=== PATIENT | male | born 1990 | race Caucasian/White ===

== ENCOUNTER 2023-09-20 16:02 | Outpatient (CLI) | payer OTHER, SELFPAY ==
[2023-09-20 16:41] LABS: Basophils # 0.1 K/mm3 (0-0.2); Basophils % 0.5 % (0.1-2.0); Eosinophils # 0.1 K/mm3 (0.0-0.4); Eosinophils % 0.6 % (0.1-12.0); Hematocrit 49.4 % (42.0-52.0); Lymphocytes # 2.6 K/mm3 (0.7-4.5); Lymphocytes % 19.2 % (10-50); Mean Corpuscular HGB Conc 32.4 g/dL (31.8-35.4); Mean Corpuscular Hemoglobin 33.6 pg (27.0-31.2); Mean Corpuscular Volume 103.8 fl (80-94); Mean Platelet Volume 8.2 fl (7.4-10.4); Monocytes # 0.8 K/mm3 (0.1-1.0); Monocytes % 5.7 % (1.7-9.3); Neutrophils # 10.2 K/mm3 (1.8-7.8); Platelet Count 262 K/mm3 (142-424); Red Blood Count 4.76 M/mm3 (4.60-6.20); Red Cell Distribution Width 13.4 % (11.5-17.5); White Blood Count 13.7 K/mm3 (4.8-10.8)
[2023-09-20 17:18] LABS: Alanine Aminotransferase 29 U/L (12-78); Albumin Level 4.5 g/dl (3.5-5.0); Alkaline Phosphatase 71 U/L (38-126); Anion Gap 14.1 mEq/L (5-15); Aspartate Amino Transferase 30 U/L (17-59); Bilirubin,Indirect 0.7 mg/dL (0.0-0.9); Bilirubin,Total 0.7 mg/dl (0.2-1.3); Bilirubin,Unconjugated 0.7 mg/dL (0.0-1.1); Blood Urea Nitrogen 16 mg/dl (9-20); Calcium 9.7 mg/dl (8.4-10.2); Carbon Dioxide 28 mmol/L (22.0-30.0); Chloride 105 mmol/L (98-107); Chol/HDL Ratio 6.8 (1-3.5); Cholesterol 211 mg/dl (140-200); Estimated Glomerular Filt Rate 87 ml/min (>60); GFR (African American) 105 ML/MIN (>60); Glucose 89 mg/dl (74-100); HDL Cholesterol 31 mg/dl (40-60); Potassium 4.1 mmoL/L (3.5-5.1); Sodium 143 mmol/L (136-145); Total Protein,Serum 7.3 g/dl (6.3-8.2); Triglycerides 247 mg/dl (30-150); VLDL Cholesterol 49 mg/dL (0-40)
[2023-09-20 17:29] LABS: Direct LDL Cholesterol 136.99 mg/dL (100-129)
[2023-09-20 17:48] LABS: Thyroid Stimulating Hormone 0.42 uIU/mL (0.465-4.68)
[2023-09-20 18:17] LABS: Hemoglobin A1C 5.4 % (4.0-6.0)
== END 2023-09-20 23:59 | disposition home or self-care (01) ==
LOC: LAB 16:03
PROVIDERS: PCP Nurse Practitioner Family; Visit Provider Internal Medicine
DX: Z13.1 Encounter for screening for diabetes mellitus (principal); R94.31 Abnormal electrocardiogram [ECG] [EKG]; F17.210 Nicotine dependence, cigarettes, uncomplicated; R53.83 Other fatigue; I10 Essential (primary) hypertension; I34.1 Nonrheumatic mitral (valve) prolapse; Z82.49 Family history of ischemic heart disease and other diseases of the circulatory system
CPT/HCPCS: 36415; 80048; 80061; 80076; 83036; 83735; 84439; 84443; 85025

== ENCOUNTER 2023-10-01 07:45 | Outpatient (CLI) | payer OTHER, SELFPAY ==
--- NOTE | 2023-10-01 07:45 | CA_ITS ---
APPROVED REPORT EXAM: Comprehensive 2D, Doppler, and color-flow Echocardiogram Refrigeration Unit Repairer: Veronika Collins RT(R) Ht: 6 ft 3 in Wt: 240lbs BSA: 2.37 BP: 142/96 mmHg Indications: Abn EKG, hx MVP, HTN, smoker, obesity, NAVIN, fatigue 2D Dimensions LVEF ([facility]) 51.30 % M: 52 - 72 LV Volume 127.90 mL M: 62 - 150 LV Volume Index 54.0 mL/m2 M: 34 - 74 LA Volume 36.50 mL LA Volume Index 15.40 mL/m2 (M/F) 16-34 EF AP4 47.70 % EF AP2 51.4 % EF BP 51.3 % GL Strain -15.7 % M-Mode Dimensions RVDd 2.70 cm (0.9-2.6) LA Diam 4.15 cm (1.9-4.0) LVDd 5.74 cm (3.5-5.7) LVDs 4.30 cm (3.5-5.7) IVSd 0.84 cm (0.6-1.1) PWd 0.65 cm (0.6-1.1) EF (Teich) 48.90% FS 25.10% EDV (Teich) 162.60 mL ESV (Teich) 83.10 mL LV Diastology E Decel Time 180 (160-240 msec) E/A Ratio 1.56 Mitral Valve MV A Velocity 53.0 (40-130 cm/s) E/A Ratio 1.56 Left Ventricle The left ventricle is normal size. The left ventricular systolic function is normal. The left ventricular ejection fraction is within the normal range. There is normal left ventricular wall thickness. There is normal LV segmental wall motion. The left ventricular diastolic function is normal. LVEF is 55%. Right Ventricle The right ventricle is mildly dilated. There is borderline RV hypokinesis present. Atria The left atrium size is normal. The right atrium size is normal. There is no Doppler evidence of interatrial shunt. Aortic Valve The aortic valve opens well. The aortic valve is trileaflet. There is no aortic valvular stenosis. No aortic regurgitation is present. Mitral Valve Borderline mitral valve prolapse of the posterior MV leaflet. No evidence of mitral valve stenosis. Mild mitral regurgitation noted. Tricuspid Valve The tricuspid valve leaflets are thin and pliable. Mild tricuspid regurgitation. RVSP is normal. Pulmonic Valve The pulmonary valve is normal in structure. Trace pulmonic regurgitation. Great Vessels The aortic root is normal in size. The ascending aorta is not well-visualized. IVC is normal in size and collapses >50% with inspiration. Pericardium There is no pericardial effusion. Other Information Study Quality: Fair Conclusion Normal LV systolic function. Mild RV dilation with borderline RV hypokinesis. Borderline mitral valve prolapse of the posterior MV leaflet. Mild MR, mild TR. Electronically signed by : Lizbeth Stoddard MD 10/05/2023 12:05:12
--- NOTE | 2023-10-01 08:14 | CT_ITS ---
APPROVED REPORT Guide Foreign Tour: CLINICAL INDICATION Chest Pain TECHNIQUE Image Acquisition: A 128 slice MDCT scanner ([employer] LaunchTracka View) was used for data acquisition. A noncontrast coronary calcium scan was performed. A CT attenuation threshold of 130 Hounsfield units (HU) was used for the detection of calcium in contiguous voxels of 1 sq mm in area to be counted as individual lesions. Bolus tracking in the ascending aorta with a threshold of 180 HU was performed. Immediately afterwards, ECG synchronized cardiac CT was then performed from the cardiac base to apex using retrospective gating with ECG tube current modulation. A total of 85 mL of Isovue 370 mg/mL contrast medium was administered at 5 mL/sec followed by a saline flush using a biphasic injection protocol. A tube voltage of 120 KVp was used. The patient received the following medications prior to the cardiac CT. 0.8 mg of sublingual nitroglycerin The average heart rate at the time of acquisition was 54 bpm and regular. Image Reconstruction Transaxial images were reconstructed at 0.67 mm slide thickness. Data was reviewed interactively on an advanced workstation capable of 2 and 3-dimensional displays in all conventional reconstruction formats, including multiplanar reformations, maximum intensity projections, curved multiplanar reformations, and volume rendered reconstructions. When applicable, selected routine images describing the relevant coronary anatomy and pathology were saved and sent to PACS. Complications None Technical Quality Overall image quality was good. Coronary artery opacification was adequate. Total DLP (Dose-Length Product) is 1879.6 mGy-cm. The reported value represents the total of one or more individual components during the CT acquisition of this date and at this time, and as such, the same value may appear in more than one CT report depending on the interpreting/reporting physicians. COMPARISON None FINDINGS CT Coronary Calcium Scoring LMA (Left Main Artery) = 0 LAD (Left Anterior Descending) = 0 LCX (Left Coronary Circumflex) = 0 RCA (Right Coronary Artery) = 0 Total Calcium Score = 0 using the AJ-130 method. The interpretation of the calcium heart score is based on the following continuum*: 0 = no calcified plaque detected (risk of coronary artery disease is very low ??? less than 5%) 1-10 = calcium detected in extremely minimal levels (risk of coronary diseases is still low ??? less than 10%) 11-100 = mild levels of plaque detected with certainty (mild or minimal narrowing of heart arteries is likely) 101-400 = definite,at least moderate levels of plaque detected (relatively high risk of a heart attack within 3-5 years) >401-999 = extensive levels of plaque detected (high risk of heart attack, high levels of vascular disease are present, high likelihood of at least one significant coronary narrowing) *The calcium heart score quantifies the burden of coronary calcification/plaque in the coronary arteries. The calcium heart score is not able to evaluate the presence or burden of non-calcified (i.e. soft) plaque. There is no identifiable calcification in the aortic valve, mitral annulus or mitral valve, pericardium, or myocardium. Coronary CT Angiography The coronary arterial system is right dominant. Quantitative Stenosis Grading: Left Main (LM): The left main originates normally from the left sinus of Valsalva. The LM bifurcates into the left anterior descending artery and left circumflex artery. The LM is patent with no evidence of atherosclerosis. Left Anterior Descending (LAD) and Diagonal Branches: The LAD gives off 3 diagonal branch(es). The LAD and its branches are patent with no evidence of atherosclerosis. There is no evidence of LAD-myocardial bridge. Left Circumflex (LCX) and Obtuse Marginals (OM): The LCX gives off Obtuse Marginal (OM) branch(es). The LCX and its branches are patent with no evidence of atherosclerosis. Right Coronary Artery (RCA): The RCA originates normally from the right sinus of Valsalva. The RCA gives off a posterior descending artery (PDA) and posterolateral (PL) branches. The RCA and its branches are patent with no evidence of atherosclerosis. Non-Coronary Cardiac Findings: Analysis of the left ventricular (LV) structure and function was performed after 3-D reconstruction of the LV from axial images, with user-corrected automatic contouring for assessment of LV volumes and user-defined reconstruction from oblique planes for measurement of 3-D cardiac structure and function. -The left ventricle systolic function is normal. -There is no left atrial appendage filling defect. Two right pulmonary veins and two left pulmonary veins drain normally into the left atrium. -No pericardial thickening or calcification. -Central and branch pulmonary arteries in the [id number] are unremarkable. -Thoracic aorta within the visualized thoracic aortic-branches in the [id number] is unremarkable. Extracardiac Structures No significant extra-cardiac findings. Note, however, that this study is focused on the cardiac findings. IMPRESSION -No coronary calcification with an Agatston score = 0 using the AJ-130 method. -No evidence of significant flow-limiting atherosclerosis of the coronary arteries. -CAD-RADS 0. Management recommendations per ACC/AHA guidelines*, as clinically appropriate. *Recommendations: CAD RADS 0: Reassurance. Consider non-atherosclerotic causes of chest pain. CAD RADS 1: Consider non-atherosclerotic causes of chest pain. Consider preventive therapy and risk factor modification. CAD RADS 2: Consider non-atherosclerotic causes of chest pain. Consider preventive therapy and risk factor modification, particularly for patients with nonobstructive plaque in multiple segments. CAD RADS 3: Consider further functional testing. Consider symptom-guided anti-ischemic and preventive pharmacotherapy as well as risk factor modification per published guideline statements. CAD RADS 4A: Consider further functional testing or invasive coronary angiography with revascularization per published guideline statements. Consider symptom-guided anti-ischemic and preventive pharmacotherapy as well as risk factor modification per published guideline statements. CAD RADS 4B: Invasive coronary angiography recommended with revascularization per published guideline statements. Consider symptom-guided anti-ischemic and preventive pharmacotherapy as well as risk factor modification per published guideline statements. CAD RADS 5: Consider invasive angiography and/or viability assessment with revascularization per published guideline statements. Consider symptom-guided anti-ischemic and preventive pharmacotherapy as well as risk factor modification per published guideline statements. CRITICAL RESULT None COMMUNICATION Per this written report The coronary and cardiac findings of this CCTA were reviewed, reported, and signed by Benoit Stoddard MD ([employer]) Conclusion Electronically signed by : Lizbeth Stoddard MD 10/04/2023 12:40:34
[2023-10-01 08:21] VITALS: BMI 30.8
[2023-10-01 08:45] VITALS: BP 132/76; PULSE 61; RESP 16; TEMP 36.2; O2SAT 98
[2023-10-01 08:50] VITALS: BP 157/94; PULSE 63; RESP 18; O2SAT 97
[2023-10-01] MEDS: NITROGLYCERIN 0.4MG SL TABLET SL (08:51)
[2023-10-01 08:52] VITALS: BP 146/70; PULSE 62; RESP 18; O2SAT 98
[2023-10-01 08:58] VITALS: BP 121/57; PULSE 66; RESP 18; O2SAT 98
[2023-10-01 09:02] VITALS: BP 118/63; PULSE 63; RESP 18; O2SAT 96
[2023-10-01 09:13] VITALS: BP 125/78; PULSE 63; RESP 18; O2SAT 93
[2023-10-01] MEDS: 0.9 % SODIUM CHLORIDE 50 ML VIAL IV (09:13)
[2023-10-01] MEDS: SODIUM CHLORIDE 0.9% 10ML SYR (RAD ONLY) 10 ML IV (09:13)
[2023-10-01] MEDS: IOPAMIDOL-370 (76%);100ML BOTTLE 85 ML IV (09:13)
== END 2023-10-01 09:13 | disposition home or self-care (01) ==
PROVIDERS: PCP Nurse Practitioner Family; Visit Provider Internal Medicine
DX: R94.31 Abnormal electrocardiogram [ECG] [EKG] (principal); R53.83 Other fatigue; I34.1 Nonrheumatic mitral (valve) prolapse; I10 Essential (primary) hypertension; Z82.49 Family history of ischemic heart disease and other diseases of the circulatory system; F17.210 Nicotine dependence, cigarettes, uncomplicated
CPT/HCPCS: 75574; 93306; Q9967

== ENCOUNTER 2023-12-02 09:52 | Outpatient (CLI) | payer OTHER, SELFPAY ==
[2023-12-02 10:10] LABS: Reticulocyte % (Auto) 1.5 % (0.9-3.2)
[2023-12-02 13:03] LABS: Vitamin B12 366 pg/mL (239-931)
[2023-12-04 10:00] LABS: Peripheral Smear Review Scanned Result
== END 2023-12-02 23:59 | disposition home or self-care (01) ==
LOC: LAB 09:53
PROVIDERS: PCP Nurse Practitioner Family; Visit Provider Internal Medicine Medical Oncology
DX: D72.829 Elevated white blood cell count, unspecified (principal)
CPT/HCPCS: 36415; 82607; 82746; 85044

== ENCOUNTER → 2024-07-26 20:37 | Outpatient (CLI) | payer OTHER, SELFPAY ==
--- OUTSIDE RECORDS SUMMARY | 2024-07-26 20:42 | XMS_ITS | Data Portability ---
Author Organization [facility] DARRIUS Ramirez ADMIN Address [address] [place] [id number] Care Team Providers Care Silo Tender Name Role Phone ADDISON HUTCHINS Primary Care Provider [phone] Assessment Encounter Date Assessment Date Assessment LastModified by Organization Details LastModified Time 06/16/2022 06/16/2022 today I more concerned about the patient's hypertension. Have discussed within the importance of hypertension control and he will be seeing his PCP tomorrow for additional treatment. Will obtain a CBC with diff and ESR. Will start NSAID, naproxen EC 500 mg b.i.d. with food p.r.n.. He will use scrotal support and rest when possible. Will be communicating with patient over the course the next few days with update on his response to treatment as well as his labs. We will also ensure that he is getting follow-up for his hypertension. [email or web address] Not available 06/16/2022 15:40:33 07/21/2022 07/21/2022 The patient's right epididymal tail/convoluted vas deferens is dilated as result of his vasectomy. Time will tell whether this becomes a more persistent issue for the patient. For now he is able to working about his usual activity without significant impairment. NSAIDs and rest currently take care of the problem. He will provide a sample for his 1st SFA post vasectomy. They will call for the results. Should this become a chronic issue, he could benefit from a right epididymectomy or partial epididymectomy although this would be a last resort. [email or web address] Not available 07/21/2022 14:16:59 Plan of Treatment Reminders Order Date Submit Date Provider Last Modified By Organization Details Last Modified Time Details Appointments None recorded. Lab semen analysis (post vasectomy) 2022 023 JAMES Not available 3 11:03:41 CBC w/ diff 2022 023 JAMES Not available 3 20:10:09 ESR (erythrocyt e sedimentati on rate), blood 2022 023 JAMES Not available 3 02:30:22 Referral None recorded. Procedures None recorded. Surgeries None recorded. Imaging None recorded. Medication Orders Naprosyn 500 mg tablet 2022 023 [email or web address] [facility], [address] [place], [address], 3 16:24:54 Patient TargetsNo targets recorded. Patient InstructionsNo instructions recorded. Reason for Referral None Reported. Results Created Date Observation Date Name Description Value Unit Range Abnormal Flag Note LastModifiedBy Organization Detail LastModifiedTime 04/27/1904/27/2022 COMP METAB OLIC PANEL sodium 142 mmol/ L 136-14 5 Not Available [facility] ([facility]) [address] [place], [address], 04/27/2022 07:00:54 04/27/19 23 04/27/2022 COMP METAB OLIC PANEL potassium 4.0 mmol/ L 3.6-5. 0 Not Available [facility] ([facility]) [address] [place], [address], 04/27/2022 07:00:54 04/27/19 23 04/27/2022 COMP METAB OLIC PANEL chloride 105 mmol/ L 98-107 Not Available [facility] ([facility]) [address] [place], [address], 04/27/2022 07:00:54 04/27/19 23 04/27/2022 COMP METAB OLIC PANEL carbon dioxide 28.5 mmol/ L 21.0-3 2.0 Not Available [facility] ([facility]) [address] [place], [address], 04/27/2022 07:00:54 04/27/19 23 04/27/2022 COMP METAB OLIC PANEL anion gap 12.5 Not Available [facility] ([facility]) [address] , [place], [address], 04/27/2022 07:00:54 04/27/19 23 04/27/2022 COMP METAB OLIC PANEL glucose 106 mg/dL 70-120 Not Available [facility] ([facility]) [address] , [place], [address], 04/27/2022 07:00:54 04/27/19 23 04/27/2022 COMP METAB OLIC PANEL BUN 11 mg/dL 7-18 Not Available [facility] ([facility]) [address] , [place], [address], 04/27/2022 07:00:54 04/27/19 23 04/27/2022 COMP METAB OLIC PANEL creatinine 1.0 mg/dL 0.6-1. 3 Not Available [facility] ([facility]) [address] , [place], [address], 04/27/2022 07:00:54 04/27/19 23 04/27/2022 COMP METAB OLIC PANEL glomerular filtration rate >60 mlper min 60- Not Available [facility] ([facility]) [address] , [place], [address], 04/27/2022 07:00:54 04/27/19 23 04/27/2022 COMP METAB OLIC PANEL total protein 6.9 g/dL 6.4-8. 2 Not Available [facility] ([facility]) [address] , [place], [address], 04/27/2022 07:00:54 04/27/19 23 04/27/2022 COMP METAB OLIC PANEL albumin 3.8 g/dL 3.4-5. 0 Not Available [facility] ([facility]) [address], [place], [address], 04/27/2022 07:00:54 04/27/19 23 04/27/2022 COMP METAB OLIC PANEL globulin 3.1 Not Available [facility] ([facility]) [address], [place], [address], 04/27/2022 07:00:54 04/27/19 23 04/27/2022 COMP METAB OLIC PANEL alb/glob ratio 1.2 0.7-2 Not Available [facility] ([facility]) [address], [place], [address], 04/27/2022 07:00:54 04/27/19 23 04/27/2022 COMP METAB OLIC PANEL calcium 8.8 mg/dL 8.5-10 .5 Not Available [facility] ([facility]) [address] , [place], [address], 04/27/2022 07:00:54 04/27/19 23 04/27/2022 COMP METAB OLIC PANEL bilirubin total 0.40 mg/dL 0.10-1 .00 Not Available [facility] ([facility]) [address] , [place], [address], 04/27/2022 07:00:54 04/27/19 23 04/27/2022 COMP METAB OLIC PANEL AST (SGOT) 14 U/L 0-37 Not Available [facility] ([facility]) [address] , [place], [address], 04/27/2022 07:00:54 04/27/19 23 04/27/2022 COMP METAB OLIC PANEL ALT (SGPT) 33 U/L 0-65 Not Available [facility] ([facility]) [address] , [place], [address], 04/27/2022 07:00:54 04/27/19 23 04/27/2022 COMP METAB OLIC PANEL alk phosphatase 86 U/L 46-116 Not Available [facility] ([facility]) [address], [place], [address], 04/27/2022 07:00:54 Result Notes None recorded. Procedures Surgical History Date Name Laterality Status Provider Name and Address Organization Details Recorded Time tonsillectomy completed [facility] & [place] 01/15/2022 08:46:50 Imaging Results None recorded. Procedure Notes None recorded. Medical Equipment None Reported. Allergies No known drug allergies Medications Name Sig Start Date Stop Date Status Note LastModified by Organization Details LastModified Time azithromyci n 250 mg tablet 01/14 completed Not Available Not Available Not Available tramadol 50 mg tablet Take 1 tablet every 8 hours by oral route for 4 days. active Not Available Not Available No t Available bisoprolol fumarate 10 mg tablet TAKE 1 TABLET(S) BY MOUTH DAILY active Not Available Not Available No t Available oxycodone-a cetaminophe n 5 mg-325 mg tablet Take 1 tablet every 6 hours by oral route for 3 days. 06/12 completed Not Available Not Available Not Available cephalexin 500 mg capsule Take 1 capsule every 6 hours by oral route for 5 days. 07/21 completed Not Available Not Available Not Available hydrochloro thiazide 12.5 mg capsule TAKE 1 CAPSULE BY MOUTH EVERY DAY active Not Available Not Available No t Available SSD 1 % topical cream APPLY A 1/16 INCH (1.5 MM) THICK LAYER OF CREAM TO ENTIRE BURN AREA TOPICALLY TWICE DAILY active Not Available Not Available No t Available naproxen 500 mg tablet Take 1 tablet twice a day by oral route for 10 days. active Not Available Not Available No t Available rosuvastati n 20 mg tablet active Not Available Not Available Not Available Vitals Date Recorded Body height Body mass index (BMI) Body weight Body temperature Systolic blood pressure Diastolic blood pressure Provider Name and Address Organization Details Last Updated DateTime 3 190.5 cm 31.4 kg/m2 657984. 68 g 98.2 [degF] 170 mm[Hg] 100 mm[Hg] [facility] & [place] 3 15:30:50 Date Recorded Body height Body mass index (BMI) Body weight Body temperature Systolic blood pressure Diastolic blood pressure Provider Name and Address Organization Details Last Updated DateTime 3 190.5 cm 31.4 kg/m2 037662. 84 g 98.2 [degF] 120 mm[Hg] 78 mm[Hg] Catalina HE [facility] & [place] 3 13:48:58 Date Recorded Body height Body mass index (BMI) Body weight Body temperature Systolic blood pressure Diastolic blood pressure Provider Name and Address Organization Details Last Updated DateTime 2 190.5 cm 32.9 kg/m2 097313. 51 g 99.3 [degF] 132 mm[Hg] 70 mm[Hg] Mona Ingram [facility] & [place] 2 08:48:49 Social History Question Answer Notes LastModified by Organizat ion Details LastModified Time Tobacco Smoking Status Current Every Day Smoker Catalina Guerrier [facility] & [place] 01/14/2022 08:29:44 What Is Your Level Of Alcohol Consumption? Occasional 1 Drink A Day [email or web address] Information not available 01/15/2022 What Is Your Level Of Caffeine Consumption? Moderate [email or web address] Information not available 01/14/2022 What Is Your Current Pack Years? 10packyears [email or web address] Information not available 01/14/2022 How Much Tobacco Do You Smoke? 2 PPD [email or web address] Information not available 01/15/2022 Do You Use Any Illicit Or Recreational Drugs? No [email or web address] Information not available 01/14/2022 Do You Or Have You Ever Used Any Other Forms Of Tobacco Or Nicotine? No [email or web address] Information not available 01/14/2022 Sex: Unknown Functional Status None recorded. Mental Status None recorded. Family History Nothing Reported Notes:mother alive father al dixie brother alive Medical History No medical history recorded. Past Encounters Encounter ID Performer Location Encounter Start Date Encounter Closed Date Diagnosis/Indication Diagnosis SNOMED-CT Code Diagnosis ICD10 Code Diagnosis Note [id number] Catalina Orona NP, S [facility] [address] [facility] [place] [address] 01/15/2022 08:35:24 01/15/2022 09:14:15 Vasectomy requested 914778026 Z30.2 The patient and I had a long discussion in regard to vasectomy. He understand s that he is not safe for unprotecte d intercours e prior to viewing two semen specimens after vasectomy showing no sperm. He understand s that this will be an outpatient procedure. He understand s that there is a possibilit y of recanaliza tion of the vas deferens creating fertility. The occurrence of post-opera tive with a negative semen analysis may not imply the father is not the patient. This may be confirmed by DNA testing. He also understand s that he should use ice, elevation, and inactivity for two days following the vasectomy; no intercours e for 2 weeks. He understand s complicati on of: 1. swelling in the scrotal area and the testicles, 2. bleeding, possibly requiring hospitaliz ation and surgical drainage, 3. loss of a testicle, 4. infection, and 5. pain. He understand s long-term complicati ons including: possible recanaliza tion of the vas producing fertility or chronic pain whether it is minor or significan t, even requiring surgical procedures including orchiectom y. He understand s that although this is a very effective procedure for sterilizat ion that it is not 100 percent effective. He was instructed to be inactive for 48 hours using ice, elevation, analgesics and antibiotic s as prescribed . He understand s the procedure employs sutures, clips, and cautery. Pt has been notified that it can take months (6-12 mo +/-) for SFA to note zero sperm. He must use protected intercours e until the SFA notes zero sperm.Clin ical Notes: Plan procedure under local/MAC. Patient will be nothing by mouth after midnight. No NSAIDs, aspirin, or blood thinning agents one week prior to the procedure. Bring a escort car driver day of procedure to drive you home. Shave all the hair from the front of the scrotum. Wear or bring close-fitt ing underwear that will support the scrotum. Arrange to rest and be off from work 2-3 days after the vasectomy. Limit activity for the first 48 hours following the procedure, avoid any heavy lifting, pushing, or straining. May take a shower in 48 hours, but needs to avoid soaking the scrotum in baths, swimming pools, hot tubs, and etc.. for at least 2 weeks following the procedure. Discussed also possible scrotal cyst removal. Sterilizat ion Consent SignedAnes thesia: Local MacPt will call office to schedule [id number] Palomo Hatch MD [facility] [address],[place] [address] 06/16/2022 15:20:39 06/16/2022 15:57:44 Post-vasectomy pain 380292323 G89.18 Essential hypertension 64786268 I10 Pain in scrotum 88681940 N50.82 right Right inguinal pain 1562 656738 9485823 R10.31 [id number] Palomo Hatch MD [facility] [address],[facility] [place] [address] 07/21/2022 13:28:20 07/21/2022 14:14:58 Post-vasectomy pain 077289853 G89.18 Dilatation and prominence of the right epididymal tail. Essential hypertension 74033964 I10 Pain in scrotum 57663622 N50.82 right Right inguinal pain 1562 609569 6090611 R10.31 Male sterilization 36165 1000 Z30.2 Health Concerns Section Related Observation LastModified by Organization Detai ls LastModified Time None Recorded Concern Status LastModified by Organization Details LastModified Time None Recorded Advance Directives Directive None Recorded Payers Encounter Date Sequence Insurance Name Policy Number Policy Cary Covered Member ID Cary Member ID Guarantor Name 01/15/2022 1 [facility] (MEDICAID HMO) Pedro Davis [id number] Pedro Davis 06/16/2022 1 [facility] ([facility] Pedro Davis [id number] Pedro Davis 07/21/2022 1 [facility] ([facility]) Pedro Davis [id number] Pedro Davis Notes Date Note Type Note Provider Name and Address Organization Details Recorded Time 01/15/2022 text/html He presents [facility] for [facility] consultation. He is with 2 children ages 6 years (female) and 2 months (female). Primary mode of control has been condoms. No genitourinary issues historically. No prior surgery or inguinal surgery. Catalina Orona NP, [address], [place], [address], [facility] 01/15/2022 10:30:53 06/16/2022 text/html Narrow patient returns to clinic today several weeks after a vasectomy. Medially following the sec me he had little to no pain. Over the last couple weeks he has had some increased pain / discomfort in the area the right testicle and with radiation along the right spermatic cord. 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 He does note some improvement in the pain with rest but worsening when he gets up and moves around especially after a few hours. He has not had any redness or swelling. This is not impaired his ability to work or go about his activities however. Today the most significant issue is hypertension. He tells me has a history of mitral valve prolapse and is followed by his PCP who is planning on seeing tomorrow for this problem and hypertension. His blood pressure was noted to be 170/100 today. The patient does not appear to be in any pain or acute distress. See past medical history:He presents today for vasectomy consultation. He is with 2 children ages 6 years (female) and 2 months (female). Primary mode of control has been condoms. No genitourinary issues historically. No prior surgery or inguinal surgery. Palomo Hatch MD [address], [place], [address], [facility] 06/16/2022 15:41:00 07/21/2022 text/html Patient returns to clinic today complaining of intermittent right paratesticular pain that happens approximately 2 days per week. It does not affect him during his work day on the farm but is more notable at night when he comes in after a long day and then rests. NSAIDs seem to make the pain / discomfort go away. He also felt much better when he went away for vacation and was way from his strenuous work on the farm. He is having no other issues. Tells me that the an antibiotic course in the past also seem to help. The patient underwent vasectomy on 04/28/2022. See past history below:Narrow patient returns to clinic today several weeks after a vasectomy. Medially following the sec me he had little to no pain. Over the last couple weeks he has had some increased pain / discomfort in the area the right testicle and with radiation along the right spermatic cord. 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 He does note some improvement in the pain with rest but worsening when he gets up and moves around especially after a few hours. He has not had any redness or swelling. This is not impaired his ability to work or go about his activities however. Today the most significant issue is hypertension. He tells me has a history of mitral valve prolapse and is followed by his PCP who is planning on seeing tomorrow for this problem and hypertension. His blood pressure was noted to be 170/100 today. The patient does not appear to be in any pain or acute distress. See past medical history:He presents today for vasectomy consultation. He is with 2 children ages 6 years (female) and 2 months (female). Primary mode of control has been condoms. No genitourinary issues historically. No prior surgery or inguinal surgery. Palomo Hatch MD [address], [place], [address], [facility] [place] [facility] [place] & [place] 07/21/2022 14:17:13
== END ==
LOC: SL 20:40
PROVIDERS: PCP Nurse Practitioner Family; Visit Provider Specialist
DX: G47.33 Obstructive sleep apnea (adult) (pediatric) (principal); R53.83 Other fatigue
CPT/HCPCS: 95811

== ENCOUNTER → 2024-09-13 20:17 | Outpatient (CLI) | payer OTHER, SELFPAY ==
--- OUTSIDE RECORDS SUMMARY | 2024-08-23 02:48 | XMS_ITS | Continuity of Care Document ---
Author Organization [facility] Phone Care Team Providers Care Police Detention Attendant Name Role Phone ADDISON HUTCHINS Primary Care ALPHONSE ECHEVARRIA Primary Attending ALPHONSE ECHEVARRIA Unavailable ALPHONSE ECHEVARRIA Admitting ALLERGIES AND ADVERSE REACTIONS ALLERGIES AND ADVERSE REACTIONS Code System Allergy Substance Adverse Reaction Date Reaction (Severity) Comment Status Reported By Updated By No Known Allergies [id number] on August 21, 2024 3:09:45 AM UTC RESULTS Patient: VERENICE CODY Date of : 1990 LABORATORY RESULTS ORDER 100: CBC WITH AUTO DIF F (LOINC: 17836-7) ORDER DATE: August 21, 2024 3:11:00 AM UTC Specimen Source: WHOLE BLOOD Specimen Type: Whole blood s ample PERFORMING LAB: [address] [id number] Result Comment: Final Result Date: August 21, 2024 3:29:00 AM UTC (TECH: RG) LOINC TEST [place] [address]-0 Leukocytes [#/volume] in Blood H 12.4 10^3/ul 4.5 10^3/ul - 11.5 10^3/ul August 21, 2024 3:29:00 AM UTC (TECH: RG) 33523-9 Erythrocytes [#/volume] in Blood L 4.56 10^6/ul 4.60 10^6/ul - 6.00 10^6/ul August 21, 2024 3:29:00 AM UTC (TECH: RG) 718-7 Hemoglobin [Mass/volume] in Blood N 14.8 g/dL 14.0 g/dL - 18.0 g/dL August 21, 2024 3:29:00 AM UTC (TECH: RG) 95935-8 Hematocrit [Volume Fraction] of Blood N 42.8 % 40.0 % - 54.0 % August 21, 2024 3:29:00 AM [place] (TECH: RG) 38227-0 MCV [Entitic volume] N 93.9 fL 80 fL - 100 fL August 21, 2024 3:29:00 AM UT (TECH: RG) 78038-5 MCH [Entitic mass] H 32.5 pg 26 pg - 32 pg August 21, 2024 3:29:00 AM UTC (TECH: RG) 99540-1 MCHC [Mass/volume] N 34.6 g/dl 32 g/d l - 36 g/dl August 21, 2024 3:29:00 AM UTC (TECH: RG) 52628-8 Erythrocyte distribution width [Entitic volume] N 12.4 % 11.5 % - 14.5 % August 21, 2024 3:29:00 AM UTC (TECH: RG) 777-3 Platelets [#/volume] in Blood by Automated count N 298 10^3/ul 150 10^3/ul - 450 10^3/ul August 21, 2024 3:29:00 AM UTC (TECH: [employer]) 33050-5 Mean platelet component [Mass/volume] in Blood by calculation N 9.8 fL 6.8 fL - 10.2 fL August 21, 2024 3:29:00 AM [facility] (TECH: [employer]) 04626-5 Manual Differential panel - Blood N NOT INDICATED August 21, 2024 3:29:00 AM UT (TECH: [employer]) 44270-8 Neutrophils [#/volume] in Blood N 65.9 % 50 % - 70 % August 21, 2024 3:29:00 AM UTC (TECH: RG) 45318-0 Lymphocytes [#/volume] in Blood N 22.2 % 18 % - 42 % August 21, 2024 3:29:00 AM UTC (TECH: RG) 55841-1 Monocytes [#/volume] in Blood N 10.3 % 2 % - 11 % August 21, 2024 3:29:00 AM UTC (TECH: RG) 98075-7 Eosinophils [#/volume] in Blood N 1.2 % 1 % - 3 % August 21, 2024 3:29:00 AM UTC (TECH: RG) 59688-0 Basophils/100 leukocytes in Blood N 0.2 % 0.0 % - 2.0 % August 21, 2024 3:29:00 AM UTC (TECH: RG) 762-5 Neutrophils [#/volume] in Urine by Manual count H 8.2 K/uL 2.0 K/uL - 6.9 K/uL August 21, 2024 3:29:00 AM UTC (TECH: RG) 00244-1 Variant lymphocytes [#/volume] in Blood N 2.7 K/uL 0.6 K/uL - 3.4 K/uL August 21, 2024 3:29:00 AM UTC (TECH: RG) 02446-0 Monocytes [#/volume] in Blood H 1.3 K/uL 0.0 K/uL - 0.9 K/uL August 21, 2024 3:29:00 AM UT (TECH: RG) 52587-4 Eosinophils [#/volume] in Blood N 0.2 K/ul 0.0 K/ul - 0.7 K/ul August 21, 2024 3:29:00 AM UT (TECH: RG) 30635-7 Basophils [#/volume] in Blood N 0.02 K/uL 0.0 K/uL - 0.2 K/uL August 21, 2024 3:29:00 AM UT (TECH: RG) ORDER 200: COMPREHENSIVE MET ABOLIC PANEL (LOINC: 94820-9) ORDER DATE: August 21, 2024 3:11:00 AM UT Specimen Source: PLASMA Specimen Type: Plasma specim en PERFORMING LAB: [address] [id number] Result Comment: Final Result Date: August 21, 2024 3:29:00 AM [facility] (TECH: RG) LOINC TEST FLAG RESULT REFERENCE RANGE UPDA DUSTY BY 2947-0 Sodium [Moles/volume ] in Blood N 144 mmol/L 136 mmol/L - 145 mmol/L August 21, 2024 3:29:00 AM UT (TECH: RG) 6298-4 Potassium [Moles/volume] in Blood N 4.0 mmol/L 3.5 mmol/L - 5.1 mmol/L August 21, 2024 3:29:00 AM UT (TECH: RG) 2069-3 Chloride [Moles/volu me] in Blood N 105 mmol/L 98.0 mmol/L - 107.0 mmol/L August 21, 2024 3:29:00 AM [facility] (TECH: RG) 93850-8 Carbon dioxide, tota l [Moles/volume] in Blood L 20 mmol/L 21 mmol/L - 32 mmol/L August 21, 2024 3:29:00 AM [facility] (TECH: RG) 41107-7 Anion gap 3 in Serum or Plasma H 23.0 mmol/L 5.0 mmol/L - 15.0 mmol/L August 21, 2024 3:29:00 AM UT (TECH: RG) 2339-0 Glucose [Mass/volume ] in Blood H 122 mg/dL 70 mg/dL - 120 mg/dL August 21, 2024 3:29:00 AM [facility] (TECH: RG) 3094-0 Urea nitrogen [Mass/volume] in Serum or Plasma N 12 mg/dl 7 mg/dl - 18 mg/dl August 21, 2024 3:29:00 AM [facility] (TECH: RG) 74690-6 Creatinine [Moles/volume] in Serum or Plasma N 1.3 mg/dL 0.8 mg/dL - 1.3 mg/dL August 21, 2024 3:29:00 AM [facility] (TECH: RG) 3097-3 Urea nitrogen/Creatinine [Mass Ratio] in Serum or Plasma N 9.2 Ratio 9 Ratio - 21 Ratio August 21, 2024 3:29:00 AM [facility] (TECH: [employer]) 76469-2 Glomerular filtratio n rate/1.73 sq M.predicted [Volume Rate/Area] in Serum or Plasma by Creatinine-based formula (MDRD) N >60 mL/min 60.0 mL/min August 21, 2024 3:29:00 AM [facility] (TECH: RG) 75336-6 Calcium [Mass/volume ] in Blood L 8.5 mg/dL 8.6 mg/dL - 9.8 mg/dL August 21, 2024 3:29:00 AM [facility] (TECH: RG) 91612-1 Bilirubin direct and total panel [Mass/volume] - Serum or Plasma N 0.3 mg/dL 0.2 mg/dL - 1.0 mg/dL August 21, 2024 3:29:00 AM [facility] (TECH: RG) 1920-8 Aspartate aminotransferase [Enzymatic activity/volume] in Serum or Plasma N 16 IU/L 15 IU/L - 37 IU/L August 21, 2024 3:29:00 AM UTC (TECH: RG) 1742-6 Alanine aminotransferase [Enzymatic activity/volume] in Serum or Plasma N 34 IU/L 12 IU/L - 78 IU/L August 21, 2024 3:29:00 AM UT (TECH: RG) 6768-6 Alkaline phosphatase [Enzymatic activity/volume] in Serum or Plasma N 97 IU/L 46 IU/L - 116 IU/L August 21, 2024 3:29:00 AM UTC (TECH: RG) 2885-2 Protein [Mass/volume ] in Serum or Plasma N 6.7 g/dL 6.4 g/dL - 8.2 g/dL August 21, 2024 3:29:00 AM UT (TECH: RG) 1751-7 Albumin [Mass/volume ] in Serum or Plasma N 3.7 g/dl 3.4 g/dl - 5.0 g/dl August 21, 2024 3:29:00 AM UT (TECH: RG) 2336-6 Globulin [Mass/volum e] in Serum N 3.0 g/dl 1.3 g/dl - 3.5 g/dl August 21, 2024 3:29:00 AM UT (TECH: RG) 34446-0 Albumin/Globulin [Ma ss Ratio] in Pleural fluid N 1.2 Ratio 1.0 Ratio - 3.9 Ratio August 21, 2024 3:29:00 AM UT (TECH: RG) 26897-0 Osmolality of Urine by calculation N 288 mOsm/kg 272 mOsm/kg - 295 mOsm/kg August 21, 2024 3:29:00 AM UT (TECH: RG) ORDER 300: UA-CULTURE IF IND ICATED (LOINC: 94376-1) ORDER DATE: August 21, 2024 3:11:00 AM UT Specimen Source: URINE Specimen Type: Urine specime n PERFORMING LAB: [address] [id number] Result Comment: Final Result Date: August 21, 2024 4:39:00 AM UT (TECH: RG) LOINC TEST FLAG RESULT REFERENCE RANGE UPDA DUSTY BY 5778-6 Color of Urine N YELLOW YELLOW July 282024 4:39:00 AM UTC (TECH: RG) 38189-2 Clarity of Urine N CLEAR CLEAR August 21, 2024 4:39:00 AM UTC (TECH: RG) 08874-4 Glucose [Moles/volum e] in Urine N NEGATIVE NEGATIVE August 21, 2024 4:39:00 AM UTC (TECH: RG) 1977-8 Bilirubin.total [Presence] in Urine N NEGATIVE NEGATIVE August 21, 2024 4:39:00 AM UTC (TECH: RG) 20905-3 Ketones [Presence] i n Urine TRACE NEGATIVE August 21, 2024 4:39:00 AM UTC (TECH: RG) 2965-2 Specific gravity of Urine N 1.025 1.00 - >=1.030 August 21, 2024 4:39:00 AM UTC (TECH: RG) 07172-6 Blood [Presence] in Urine by Visual N NEGATIVE NEGATIVE August 21, 2024 4:39:00 AM UTC (TECH: RG) 2756-5 pH of Urine N 6.5 5 - 8 August 21, 2024 4:39:00 AM UTC (TECH: RG) 2887-8 Protein [Presence] i n Urine TRACE NEGATIVE August 21, 2024 4:39:00 AM UTC (TECH: RG) 63086-7 Urobilinogen [Presen ce] in Urine 1.0 mg/dL 0.2 - 1.0 August 21, 2024 4:39:00 AM UTC (TECH: RG) 66050-3 Nitrite [Presence] i n Urine N NEGATIVE NEGATIVE August 21, 2024 4:39:00 AM UTC (TECH: RG) 30818-7 Leukocyte esterase [Units/volume] in Urine N NEGATIVE NEGATIVE August 21, 2024 4:39:00 AM UTC (TECH: RG) 23638-9 Urinalysis microscop ic panel - Urine sediment N NOT INDICATED August 21 025 4:39:00 AM UTC (TECH: RG) 33433-2 Collection method - N CCMS August 21, 2024 4:39:00 AM UTC (TECH: RG) 92564-6 Culture medium [Type ] in Isolate N C&S NOT INDIC August 21, 2024 4:39:00 AM UTC (TECH: RG) LABORATORY NARRATIVE RESULTS Information is not available RADIOLOGY RESULTS ORDER 400: CT ABD/PEL NO ORA L OR IV CONT (LOINC: 64402-6) ORDER DATE: August 21, 2024 3:11:00 AM [facility] PERFORMING LAB: [address] [place] [id number] Final Result Date: August 21 5:36:[address] [address] Name: GLO CALDERA Exam Date: 08/20/2024 : 1990 Age 33 years Gender: M Physician: ALPOHNSE ECHEVARRIA Facility: [facility] HSV: Outpatient Exam: CT ABD/PEL NO ORAL OR IV CONT CT ABDOMEN PELVIS WITHOUT IV CONTRAST, 08/20/2024 10:32 PM CDT CLINICAL INDICATION: Male, 33 years old. Flank Pain Left Side TECHNIQUE: CT abdomen and pelvis was performed without IV contrast, as per department protocol. Axial, sagittal and coronal reconstructions were obtained. One or more of the following dose reduction techniques were used: Automated exposure control, adjustment of the mA and/or kV according to patient size, and/or iterative reconstruction. Unless otherwise specified, incidental findings do not require dedicated imaging follow-up. [id number]. ORAL CONTRAST: Not administered, limiting the sensitivity of this exam for evaluation of bowel, retroperitoneum, and intraabdominal fluid collections. COMPARISON: 4-16 FINDINGS: LOWER CHEST: The visualized lung bases are clear. LIVER: Grossly normal noncontrasted appearance. GALLBLADDER: Grossly normal. BILE DUCTS: No significant biliary ductal dilatation. PANCREAS: Grossly normal noncontrasted appearance of the pancreas without peripancreatic inflammation or peripancreatic fluid collection. SPLEEN: Normal size. ADRENALS: Grossly normal. KIDNEYS AND URETERS: Mild left hydroureteronephrosis secondary to a 4 mm obstructing calculus in the distal left ureter near the left UVJ. Punctate nonobstructing calculi remain in both kidneys. URINARY BLADDER: Underdistended and therefore not well evaluated on this study. GASTROINTESTINAL TRACT: No abnormal distention of the stomach, small bowel, or colon to suggest bowel obstruction. No pericolonic inflammatory change. APPENDIX: Normal appendix. LYMPH NODES: No lymphadenopathy. VASCULATURE: No abdominal aortic aneurysm. REPRODUCTIVE ORGANS: No acute process. MUSCULOSKELETAL: No acute fracture. No suspicious lytic or sclerotic lesion. PERITONEUM: No free fluid visualized in the abdomen or pelvis. No pneumoperitoneum. Legally authenticated by SHAYY Baptiste 2024-08-21 01:36:00 IMPRESSION: Mild left hydroureteronephrosis secondary to a 4 mm obstructing calculus in the distal left ureter near the left UVJ. Punctate nonobstructing calculi remain in both kidneys. Electronically signed by: Ki Crump MD 08/21/2024 01:54 AM EDT RP Dictated By: KI CRUMP Transcribed By: Transcribed On: 08/21/2024 1:36 AM Electronically signed by: KI CRUMP 08/21/2024 Thank you for referring GLO CALDERA to [facility]. Legally authenticated by SHAYY Baptiste 2024-08-21 01:36:00 PATHOLOGY NARRATIVE RESULTS Information is not available MICROBIOLOGY RESULTS No Micro Labs/Results Exist for Patient BLOOD ADMIN RESULTS Information is not available MEDICATIONS HOME MEDICATIONS Status RXNORM NDC Medication Dose Route Frequency Dates Comments Reported By Updated By Active [employer] tMed losartan oral 0.0 Last Dose: [id number] on August 21, 2024 3:09:45 AM UT DISCHARGE MEDICATIONS Status RXNORM NDC Medication Dose Route Frequency Dates Comments Physician Updated By No Discharge Medication Info rmation Available INPATIENT MEDICATIONS Status RXNORM NDC Medication Dose Route Frequency Rat e Quantity Dates Comments Physician Updated By Arnold inued [id number] ketorolac (TORADOL) 30 MG/ML SOLN 30.0 MG INTRAV ENOUS ONE TIME ONLY Start: August 21, 2024 3:13:0 0 AM UT End: August 21, 2024 3:13:0 0 AM UT ECHEVARRIA ALPHONSE Vang INTERFAC ED on August 21, 2024 3:12:00 AM UT Discont inued [id number] 4959 4088 501 NORCO 5-325 MG TABS 1.0 TAB ORAL ONE TIME ONLY Start: August 21, 2024 4:37:0 0 AM UT End: August 21, 2024 4:37:0 0 AM UT ECHEVARRIA ALPHONSE Vang INTERFAC ED on August 21, 2024 4:36:00 AM UT Discont inued [id number] 5613 005 ondansetron (ZOFRAN) 4 MG/2 ML SOLN 4.0 MG INTRAV ENOUS ONE TIME ONLY Start: August 21, 2024 4:37:0 0 AM UTC End: August 21, 2024 4:37:0 0 AM UTC ECHEVARRIA ALPHONSE Vang INTERFAC ED on August 21, 2024 4:36:00 AM UT Discont inued [id number] 6513 4089 501 NORCO 5-325 MG TABS 1.0 TAB ORAL ONE TIME ONLY Start: August 21, 2024 6:12:0 0 AM UTC End: August 21, 2024 6:12:0 0 AM UTC ECHEVARRIA ALPHONSE Vang INTERFAC ED on August 21, 2024 6:12:00 AM UT SOCIAL HISTORY SOCIAL HISTORY SNOMED-CT Social History Element Description Effective Dates Offered Cessation Comment UpdatedBy [id number] Current Tobacco smoking status Heavy Tobacco Smoker [id number] on August 21, 2024 3:10:28 AM UT SOCIAL HISTORY - Gender Sex: Male SOCIAL HISTORY - Status : status i nformation is not available Intention in Next Year: intention information is not available SOCIAL HISTORY - Sexual Behavior Sexual Orientation Gender Identity SNOMED-CT Description SNO MED -CT Description Activity Level No of Partners Partner Type UpdatedBy Information is not available VITAL SIGNS PATIENT VITAL SIGNS This section displays the mo st recent value for each vital sign as of August 23, 2024 6:48:26 AM UT Loinc Code Vital Sign Activity Date Result Updated By 8302-2 Body height August 21, 2024 3:07:38 AM UTC 190.5 cm (75.0 in) [id number] on August 21, 2024 3:07:38 [place] [address]-7 Body mass index (BMI ) [Ratio] August 21, 2024 3:07:38 AM UTC 31.138 kg/m2 [id number] on August 21, 2024 3:07:38 AM UT 3140-1 Body Surface Area Derived From Formula August 21, 2024 3:07:38 AM UTC 2.4091 m2 [id number] on August 21, 2024 3:07:38 AM UT 8310-5 Body temperature August 21, 2024 3:05:00 AM UTC 97.6 [degF] [id number] on August 21, 2024 3:07:37 [place] [address]-5 Body weight Measured August 21 3:07:38 AM UTC 113.0 kg (249.0 lb) [id number] on August 21, 2024 3:07:38 AM UTC 8462-4 Diastolic blood pressure August 21, 2024 6:00:00 AM UTC 85.0 mm[Hg] [id number] on August 21, 2024 6:17:25 AM UTC 8867-4 Heart rate August 21, 2024 6:09:00 AM UTC 79 /min [id number] on August 21, 2024 6:17:[place] [address]-8 Oxygen saturation in Arterial blood by Pulse oximetry August 21, 2024 6:09:00 AM UTC 95.0 % [id number] on August 21, 2024 6:17:26 AM UT 9279-1 Respiratory rate August 21, 2024 3:05:00 AM UTC 16 /min [id number] on August 21, 2024 3:07:37 AM UTC 8480-6 Systolic blood pressure August 21, 2024 6:00:00 AM UTC 145.0 mm[Hg] [id number] on August 21, 2024 6:17:25 AM UT PEDIATRIC GROWTH CHART - VITAL SIGNS This section displays Head C ircumference Percentile, Weight for Length Percentile and BMI Percentile Loinc Code Pediatric Measure Age (Months) Result Updat ed By No Pediatric Growth Chart Pe rcentile Information Available. HEALTH CONCERNS Problems Concern Status Health Concern problem infor mation not available. Smoking Status Status Years Used Consumed packs p er day Health Concern smoking histo ry information not available. Family History Concern Status Health Concern family histor y information not available. ENCOUNTERS ENCOUNTER INFORMATION Reason for Visit FLANK PAIN Admission August 21, 2024 2:59:[address] [address] Discharge August 21, 2024 6:21:00 AM UTC DISC HARGED TO HOME OR SELF CARE ENCOUNTER DIAGNOSES Notes information is not akira ilable. Code System Diagnosis Onset Date Diagnosis information is not available. 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) DR TALHA YOUNG [id number] on August 23, 2024 6:47:41 AM UTC CARE TEAM Care Police Detention Attendant Role ADDISON HUTCHINS Primary Care ALPHONSE ECHEVARRIA Primary Attending ALPHONSE ECHEVARRIA Referring ALPHONSE ECHEVARRIA 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 Role on Team Status Start Date End Date Update d By WALE Vang APRN Referring normal August 21, 2024 4:28:55 AM UT August 21, 2024 6:21:00 AM UT [id number] on August 21, 2024 4:28:55 AM UT WALE Vang APRN Attending normal August 21, 2024 4:05:54 AM UT August 21, 2024 6:21:00 AM UT [id number] on August 21, 2024 4:28:55 AM [facility] WALE Vang APRN Admitting normal August 21, 2024 4:05:53 AM UT August 21, 2024 6:21:00 AM UT [id number] on August 21, 2024 4:28:55 AM [facility] CUONG JAIME [facility] normal August 21, 2024 2:59:39 AM UT August 21, 2024 6:21:00 AM UT [id number] on August 21, 2024 4:28:55 AM UT
--- OUTSIDE RECORDS SUMMARY | 2024-09-13 20:20 | XMS_ITS | Data Portability ---
Author Organization [facility] DARRIUS Ramirez ADMIN Address [address] [place] [address] Care Team Providers Care Waiter Name Role Phone ADDISON HUTCHINS Primary Care Provider [phone] Assessment Encounter Date Assessment Date Assessment LastModified [...] he is getting follow-up for his hypertension. [email or web address] Not available 06/16/2022 15:40:33 07/21/2022 07/21/2022 The [...] although this would be a last resort. [email or web address] Not available 07/21/2022 14:16:59 Plan of Treatment [...] 023 [email or web address] [facility], [address] [place], [address], 3 16:24:54 Patient TargetsNo targets recorded. Patient InstructionsNo instructions recorded. Reason for Referral None Reported. Results Created Date Observation Date Name Description Value Unit Range Abnormal Flag Note LastModifiedBy Organization Detail LastModifiedTime 04/27/1904/27/2022 COMP METAB OLIC PANEL sodium 142 mmol/ L 136-14 5 Not Available [facility] ([facility]) [address] [place], [address], 04/27/2022 07:00:54 04/27/19 23 04/27/2022 COMP METAB OLIC PANEL potassium 4.0 mmol/ L 3.6-5. 0 Not Available [facility] ([facility]) [address] [place], [address], 04/27/2022 07:00:54 04/27/19 23 04/27/2022 COMP METAB OLIC PANEL chloride 105 mmol/ L 98-107 Not Available [facility] ([facility]) [address] [place], [address], 04/27/2022 07:00:54 04/27/19 23 04/27/2022 COMP METAB OLIC PANEL carbon dioxide 28.5 mmol/ L 21.0-3 2.0 Not Available [facility] ([facility]) [address] [place], [address], 04/27/2022 07:00:54 04/27/19 23 04/27/2022 COMP METAB OLIC PANEL anion gap 12.5 Not Available [facility] ([facility]) [address] , [place], [address], 04/27/2022 07:00:54 04/27/19 23 04/27/2022 COMP METAB OLIC PANEL glucose 106 mg/dL 70-120 Not Available [facility] ([facility]) [address] , [place], [address], 04/27/2022 07:00:54 04/27/19 23 04/27/2022 COMP METAB OLIC PANEL BUN 11 mg/dL 7-18 Not Available [facility] ([facility]) [address] , [place], [address], 04/27/2022 07:00:54 04/27/19 23 04/27/2022 COMP METAB OLIC PANEL creatinine 1.0 mg/dL 0.6-1. 3 Not Available [facility] ([facility]) [address] , [place], [address], 04/27/2022 07:00:54 04/27/19 23 04/27/2022 COMP METAB OLIC PANEL glomerular filtration rate >60 mlper min 60- Not Available [facility] ([facility]) [address] , [place], [address], 04/27/2022 07:00:54 04/27/19 23 04/27/2022 COMP METAB OLIC PANEL total protein 6.9 g/dL 6.4-8. 2 Not Available [facility] ([facility]) [address] , [place], [address], 04/27/2022 07:00:54 04/27/19 23 04/27/2022 COMP METAB OLIC PANEL albumin 3.8 g/dL 3.4-5. 0 Not Available [facility] ([facility]) [address] [place], [place], [address], 04/27/2022 07:00:54 04/27/19 23 04/27/2022 COMP METAB OLIC PANEL globulin 3.1 Not Available [facility] ([facility]) [address], [place], [address], 04/27/2022 07:00:54 04/27/19 23 04/27/2022 COMP METAB OLIC PANEL alb/glob ratio 1.2 0.7-2 Not Available [facility] ([facility]) [address], [place], [address], 04/27/2022 07:00:54 04/27/19 23 04/27/2022 COMP METAB OLIC PANEL calcium 8.8 mg/dL 8.5-10 .5 Not Available [facility] ([facility]) [address] , [place], [address], 04/27/2022 07:00:54 04/27/19 23 04/27/2022 COMP METAB OLIC PANEL bilirubin total 0.40 mg/dL 0.10-1 .00 Not Available [facility] ([facility]) [address] , [place], [address], 04/27/2022 07:00:54 04/27/19 23 04/27/2022 COMP METAB OLIC PANEL AST (SGOT) 14 U/L 0-37 Not Available [facility] ([facility]) [address] , [place], [address], 04/27/2022 07:00:54 04/27/19 23 04/27/2022 COMP METAB OLIC PANEL ALT (SGPT) 33 U/L 0-65 Not Available [facility] ([facility]) [address] , [place], [address], 04/27/2022 07:00:54 04/27/19 23 04/27/2022 COMP METAB OLIC PANEL alk phosphatase 86 U/L 46-116 Not Available [facility] ([facility]) [address], [place], [address], 04/27/2022 07:00:54 Result Notes None recorded. Procedures Surgical History Date Name Laterality Status Provider Name and Address Organization Details Recorded Time tonsillectomy completed [facility] [place] 01/15/2022 08:46:50 Imaging Results None recorded. Procedure [...] Updated DateTime 3 190.5 cm 31.4 kg/m2 152653. 68 g 98.2 [degF] 170 mm[Hg] 100 mm[Hg] [facility] [place] 3 15:30:50 Date Recorded Body height Body mass index (BMI) Body weight Body temperature Systolic blood pressure Diastolic blood pressure Provider Name and Address Organization Details Last Updated DateTime 3 190.5 cm 31.4 kg/m2 155203. 84 g 98.2 [degF] 120 mm[Hg] 78 mm[Hg] Catalina HE [facility] & [place] 3 13:48:58 Date Recorded Body height Body mass index (BMI) Body weight Body temperature Systolic blood pressure Diastolic blood pressure Provider Name and Address Organization Details Last Updated DateTime 2 190.5 cm 32.9 kg/m2 605134. 51 g 99.3 [degF] 132 mm[Hg] 70 mm[Hg] Mona Ingram [facility] & [place] 2 08:48:49 Social History Question Answer Notes LastModified by eyeQ Details LastModified Time Tobacco Smoking Status Current Every Day Smoker Catalina Guerrier [facility] & [place] 01/14/2022 08:29:44 What Is Your Level Of Caffeine Consumption? Moderate [email or web address] Information not available 01/14/2022 What Is Your Current Pack Years? 10packyears [email or web address] Information not available 01/14/2022 How Much Tobacco Do You Smoke? 2 PPD [email or web address] Information not available 01/15/2022 Sex: Unknown Functional Status Question Answer Note LastModified by eyeQ Details LastModified Time Do you use any illicit or recreational drugs? No [email or web address] Information not available 01/14/2022 Do you or have you ever used any other forms of tobacco or nicotine? No [email or web address] Information not available 01/14/2022 What is your level of alcohol consumption? Occasional 1 drink a day [email or web address] Information not available 01/15/2022 Mental Status None recorded. Family History Nothing Reported Notes:mother alive father al dixie brother alive Medical History No medical history recorded. Past Encounters Encounter ID Performer Location Encounter Start Date Encounter Closed Date Diagnosis/Indication Diagnosis SNOMED-CT Code Diagnosis ICD10 Code Diagnosis Note [id number] Catalina Orona NP, S [facility] [address] [place] [address] 01/15/2022 08:35:24 01/15/2022 09:14:15 Vasectomy requested 507564235 Z30.2 The patient and I had a [...] week prior to the procedure. Bring a water taxi driver day of procedure to drive you [...] Local MacPt will call office to schedule [id number] Palomo Hatch MD [facility] [address],[facility] [place] [address] 06/16/2022 15:20:39 06/16/2022 15:57:44 Post-vasectomy pain 801068552 G89.18 Essential hypertension 82624857 I10 Pain in scrotum 87759427 N50.82 right Right inguinal pain 1562 934405 0998987 R10.31 [id number] Palomo Hatch MD [facility] [address] [address] 07/21/2022 13:28:20 07/21/2022 14:14:58 Post-vasectomy pain 051392177 G89.18 Dilatation and prominence of the right epididymal tail. Essential hypertension 40145065 I10 Pain in scrotum 95712598 N50.82 right Right inguinal pain 1562 213269 7637894 R10.31 Male sterilization 93568 1000 Z30.2 Health Concerns Section Related Observation LastModified by Organization Detai ls LastModified Time None Recorded Concern Status LastModified by Organization Details LastModified Time None Recorded Advance Directives Directive None Recorded Payers Insurance Date Sequence Insurance Name Policy Number Policy Cary Covered Member ID Cary Member ID Guarantor Name 10/16/2023 1 [facility] (MEDICAID HMO) Pedro Davis [id number] Pedro Davis Notes Date Note Type Note Provider Name and Address Organization Details Recorded Time 01/15/2022 text/html [facility]. He is with 2 children ages 6 years (female) and 2 months (female). Primary mode of control has been condoms. No genitourinary issues historically. No prior surgery or inguinal surgery. Catalina Orona, MAIL MANAGER, [address] , [place], [address], [place] - [facility] 01/15/2022 10:30:53 06/16/2022 text/html Amanda patient returns to clinic today several weeks [...] surgery or inguinal surgery. Palomo Hatch MD [facility], [place], [address], [place] - [facility] 06/16/2022 15:41:00 07/21/2022 text/html Patient returns to [...] underwent vasectomy on 04/28/2022. See past history below:Amanda patient returns to clinic today several weeks [...] surgery or inguinal surgery. Palomo Hatch MD [address], [place], [address], [facility] - [facility] - [place] & [place] 07/21/2022 14:17:13
--- OUTSIDE RECORDS SUMMARY | 2024-09-13 20:20 | XMS_ITS | Encounter Summary ---
Author Organization [employer] Address [address] [place] [address] Care Team Providers Care Client Specialist Name Role Phone Mago Vicky Misael GUTIERREZ Primary Care Provider [phone] Encounter Details Date Type Department Care Team (Late st Contact Info) Description 07/21/2022 Outside Orders [facility] Admitting [address] [place] [address] Palomo Hatch MD [address] [facility] [address] [place] [address] Sterilization (Primary Dx) Social History Tobacco Use Types Packs/Day Years Used Date Smoking Tobacco: Never Assessed Sex and Gender Information Value Date Recorded Sex Assigned at Not on file Legal Sex Male 3:14 PM CDT Gender Identity Not on file Sexual Orientation Not on file COVID-19 Exposure Response Date Recorded In the last 10 days, have yo u been in contact with someone who was confirmed or suspected to have Coronavirus/COVID-19? No / Unsure 07/21/2022 3:00 PM EDT documented as of this encounter Plan of Treatment Not on file documented as of this encounter Results * Semen analysis, post-vasectomy (07/21/2022 3:25 PM EDT) SPERM COUNT SEMEN 0.0 M/mL 07/21/2022 3:31 PM EDT [facility] Volume, Smn 2 mL 07/21/2022 3:31 PM EDT [facility] Motility No Sperm No Sperm % 07/21/2022 3:31 PM EDT [facility] Semen SEMINAL FLUID / Unknown 07/21/2022 3:25 PM EDT 07/21/2022 3:25 PM EDT Narrative [facility] - 07/21/2022 3:31 PM EDT A concentration technique has not been performed. us Palomo Hatch MD BODY FLUIDS AND STOOLS ORDERABLE S Final Result [facility] [address] [place] [address] documented in this encounter Visit Diagnoses Diagnosis Sterilization- Primary documented in this encounter Care Teams Client Specialist Relationship Specialty Start Date End Date Vicky Mercedes, [employer] OPERATOR PCP - General Family Medicine 06/16/22 documented as of this encounter
--- OUTSIDE RECORDS SUMMARY | 2024-09-13 20:20 | XMS_ITS | Data Portability ---
Author Organization [facility] [employer] [place] - [place] Address [address] [place] [address] Assessment No assessment recorded. Plan of Treatment Reminders Order Date Submit Date Provider Last Modified By Organization Details Last Modified Time Details Appointments None recorded. Lab rapid flu (A+B) [address], [address], 5 10:29:28 rapid SARS CoV 2 Ag, QL, [place], upper respiratory specimen [address], [address], 5 10:29:33 rapid strep group A, throat [address], [address], 5 17:23:46 rapid flu (A+B) [address], [address], 5 09:02:03 rapid SARS CoV 2 Ag, QL, IA, upper respiratory specimen [address] [place], [address], 5 09:02:03 Referral sleep medicine referral - first available appt 2023 024 JAMES Kumar MD, [address], [address], [place], [address], 4 16:23:51 Procedures None recorded. Surgeries None recorded. Imaging None recorded. Medication Orders amoxicillin 875 mg-potassiu m clavulanate 125 mg tablet 2024 025 [facility], [address] [place] [address], [address], 5 11:11:37 ceftriaxone 1 gram solution for injection 2024 025 [email or web address] Not available 10:07:16 Tamiflu 75 mg capsule 2024 025 [facility], [address] [place] [address], [address], 5 16:14:43 albuterol sulfate HFA 90 mcg/actuati on aerosol inhaler 2024 025 [facility], [address] [place] [address], [address], 5 09:36:14 ondansetron 4 mg disintegrat ing tablet 2024 025 [facility], [address] [place] [address], [address], 5 10:31:10 dextrometho rphan-guaif enesin 10 mg-100 mg/5 mL oral syrup 2024 025 [facility], [address] [place] [address], [address], 5 10:21:10 penicillin V potassium 500 mg tablet 2023 025 [facility], [address] [place] [address], [address], 5 08:45:57 rosuvastati n 20 mg tablet 2023 [facility], [address] [place] [address], [address], 4 11:57:14 bisoprolol fumarate 10 mg tablet 2023 024 [facility], [address] [place] [address], [address], 4 11:57:13 losartan 100 mg-hydrochl orothiazide 25 mg tablet 2023 [facility], [address] [place] [address], [address], 4 11:57:15 doxycycline monohydrate 100 mg capsule 2023 [facility], [address] [place] [address], [address], 4 08:08:45 triamcinolo ne acetonide 40 mg/mL suspension for injection 2023 [email or web address] Not available 17:06:55 Patient TargetsNo targets recorded. Patient InstructionsNo instructions recorded. Reason for Referral Sleep Medicine Referral for Obstructive sleep apnea syndrome first available appt Referring Physician: Vicky Mercedes, Family Medicine, Encounter Date: 01/11/2024 Results Created Date Observation Date Name Description Value Unit Range Abnormal Flag Note LastModifiedBy Organization Detail LastModifiedTime 05/03/19 25 05/03/2024 rapid SARS CoV 2 Ag, QL, [place], upper respi rator y speci men SARS CoV Ag negati ve Not Available [address], [address], 05/03/2024 08:38:37 05/03/19 25 05/03/2024 rapid flu (A+B) Flu A positi ve Not Available [address], [address], 05/03/2024 08:38:31 05/03/19 25 05/03/2024 rapid flu (A+B) Flu B negati ve Not Available [address], [address], 05/03/2024 08:38:31 06/02/19 25 06/01/2024 rapid strep group A, throa t Strep negati ve Not Available [address], [address], 06/01/2024 16:18:13 06/14/19 25 06/13/2024 rapid SARS CoV 2 Ag, QL, IA, upper respi rator y speci men SARS CoV Ag negati ve Not Available [address], [address], 06/13/2024 10:10:05 06/14/19 25 06/13/2024 rapid flu (A+B) Flu A negati ve Not Available [address], [address], 06/13/2024 10:09:59 06/14/19 25 06/13/2024 rapid flu (A+B) Flu B negati ve Not Available [address], [address], 06/13/2024 10:09:59 Result Notes None recorded. Problems Name Problem SNOMED Code Status Onset Date Resolution Date Notes Provider Name and Address Organization Details Recorded Time Mixed hyperlip idemia 410159387 Active 2023 Vicky Mercedes, COMPLIANCE COORDINATOR [address] [place], [address] , [employer] 4 10:17:38 Obstruct dixie sleep apnea syndrome 12595752 Active 2023 Vicky Mercedes, COMPLIANCE COORDINATOR [address] [place], [address] , [employer] 4 10:17:39 [facility] hyperten ivan 22551061 Active 2023 Vicky Mercedes, COMPLIANCE COORDINATOR [address] [place], [address] , [employer] 4 10:17:43 Noncompl iance with medicati on regimen 808433596 Active 2023 Vicky Mercedes, COMPLIANCE COORDINATOR [address] [place], [address] , [employer] 4 11:11:14 Sore throat 266319750 Active 2024 Lorena Ness null, [employer] 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 2 08:28:56 Nicotine dependen ce 81583838 Completed 201912/16/2021 Problem Code: F17.200; Problem Code Type: ICD-10; AIME MARCIALNEAR null, [employer] 2 08:28:56 Tobacco dependen ce caused by cigarett es 78154805830 759728 Completed 201710/10/2017 Problem Code: F17.210; Problem Code Type: ICD-10; Not Available [facility] 2 22:16:32 Tobacco dependen ce caused by cigarett es 33966163064 121778 Active 2020 Problem Code: F17.210; Problem Code Type: ICD-10; Not Available [employer] 2 22:16:32 Acute suppurat dixie otitis media 630544980 Completed 201711/26/2017 Not Available [facility] 2 22:16:32 Spontane ous rupture of right tympanic membrane co-occur rent and due to acute suppurat dixie otitis media 95639161966 4101 Completed 202006/17/2022 Problem Code: H66.011; Problem Code Type: ICD-10; AIME CEJANEAR null, [employer] 3 08:16:31 Acute maxillar y sinusiti s 52888493 Completed 201601/08/2017 Problem Code: J01.00; Problem Code Type: ICD-10; Not Available [facility] 2 22:16:32 Acute sinusiti s 21196119 Completed 202012/16/2021 Problem Code: J01.90; Problem Code Type: ICD-10; AIME MARCIALNEAR null, [employer] 2 08:28:56 Disorder of upper respirat ory system 230416555 Completed 202112/16/2021 Problem Code: J06.9; Problem Code Type: ICD-10; AIME MYNEAR null, [employer] 2 08:28:56 Acute bronchit is 70316442 Completed 201812/16/2021 Problem Code: J20.9; Problem Code Type: ICD-10; AIME MYNEAR null, [employer] 2 08:28:56 Acute bronchit is 23709316 Completed 202010/31/2020 Problem Code: J20.9; Problem Code Type: ICD-10; AIME MYNEAR null, [employer] 2 08:28:56 Acute bronchit is 13188002 Completed 201712/10/2017 Problem Code: J20.9; Problem Code Type: ICD-10; AIME MYNEAR null, [employer] 2 08:28:56 Allergic rhinitis caused by pollen 36401315 Completed 201712/11/2017 Problem Code: J30.1; Problem Code Type: ICD-10; Not Available [facility] 2 22:16:33 Allergic rhinitis 61676168 Completed 201908/21/2020 Problem Code: J30.9; Problem Code Type: ICD-10; Not Available [facility] 2 22:16:33 Allergic rhinitis 56417032 Completed 201708/25/2017 Problem Code: J30.9; Problem Code Type: ICD-10; Not Available [facility] 2 22:16:33 Muscle pain 29238612 Completed 201912/16/2021 Problem Code: M79.10; Problem Code Type: ICD-10; AIME MARCIALNEAR null, [employer] 2 08:28:56 Cough 56088189 Completed 202012/16/2021 Problem Code: R05; Problem Code Type: ICD-10; AIME MARCIALNEAR null, [employer] 2 08:28:56 Epigastr ic pain 20492265 Completed 201710/11/2017 Problem Code: R10.13; Problem Code Type: ICD-10; Not Available [facility] 2 22:16:33 Cough 52124041 Completed 201504/09/2016 Problem Code: R05; Problem Code Type: ICD-10; AIME MYNEAR null, [employer] 2 08:28:56 Nausea and vomiting 72670641 Completed 201908/21/2020 Problem Code: R11.2; Problem Code Type: ICD-10; Not Available [facility] 2 22:16:34 Diarrhea 36690678 Completed 202012/16/2021 Problem Code: R19.7; Problem Code Type: ICD-10; AIME MYNEAR null, [employer] 2 08:28:56 Pyrexia of unknown origin 2795390 Completed 201908/21/2020 Problem Code: R50.9; Problem Code Type: ICD-10; Not Available [facility] 2 22:16:34 Hyperten sive disorder 27392898 Active 2019 Problem Code: I10; Problem Code Type: ICD-10; Not Available [facility] 2 22:16:34 Acute maxillar y sinusiti s 60197295 Completed 201711/15/2017 Problem Code: J01.00; Problem Code Type: ICD-10; Not Available [facility] 2 22:16:34 Acute sinusiti s 97606273 Completed 201504/09/2016 Problem Code: J01.90; Problem Code Type: ICD-10; AIME MARCIALNEAR null, [employer] 2 08:28:56 Acute pharyngi tis 341013460 Completed 201912/16/2021 AIME MARCIALNEAR null, [employer] 2 08:28:56 Acute bronchit is 89176908 Completed 201711/15/2017 Problem Code: J20.8; Problem Code Type: ICD-10; AIME MARCIALNEAR null, [employer] 2 08:28:56 Body mass index 30+ - obesity 181247228 Completed 202112/16/2021 Problem Code: Z68.32; Problem Code Type: ICD-10; AIME MARCIALNEAR null, [employer] 2 08:28:56 Body mass index 30+ - obesity 279923539 Completed 201910/31/2020 Problem Code: Z68.31; Problem Code Type: ICD-10; AIME MYNEAR null, [employer] 2 08:28:56 Acute suppurat dixie otitis media without spontane ous rupture of ear drum 05324738 Completed 201711/26/2017 Problem Code: 382.00; Problem Code Type: ICD-9; Not Available [facility] 2 22:16:36 Cough 50060554 Completed 201712/10/2017 Problem Code: 786.2; Problem Code Type: ICD-9; AIME coronel, [employer] 2 08:28:56 Body mass index 30+ - obesity 014646812 Completed 201710/31/2020 Problem Code: V85.30; Problem Code Type: ICD-9; AIME coronel, [employer] 2 08:28:56 Tobacco dependen ce syndrome 02156217 Completed 201710/10/2017 Problem Code: 305.1; Problem Code Type: ICD-9; Not Available [facility] 22:16:37 Notes:*Problem Name: Encount er for general adult medical examination *ICD-10 Codes: Z00.00 *Problem Status: Chronic *Comments: [id number]: 'Z00.0'; *Problem Code: Z00.0 *Problem Code Type: ICD-10 *Note Date: 02/17/2021 Problem Notes None recorded. Procedures Surgical History Date Name Laterality Status Provider Name and Address Organization Details Recorded Time 3 vasectomy completed Vicky Mercedes APRN [address] [place] [address], [id number] [employer] 06/17/2022 08:25:38 tonsillectomy completed [employer]LYNN [employer] 12/16/2021 08:29:32 Imaging Results None recorded. Procedure Notes None recorded. Medical Equipment None Reported. Allergies No known drug allergies Medications Name Sig Start Date Stop Date Status Note LastModified by Organization Details LastModified Time mixing jar, stir stick and spatula 1OZ OINTMENT JAR, MIXING STICK, SPATULA 06/13 completed Not Available Not Available Not Available clindamycin /mupirocin/ itraconazol e 150/20/50mg topical capsule [50325] MIX 1 CAPSULE WITH UP TO 4 GRAMS OF OINTMENT. APPLY TO AFFECTED AREA. PERFORM TWICE DAILY 06/13 completed Not Available Not Available Not Available spray kit 5ml USE 5 ML FOR MEDICATIO N ADMINISTR ATION WITH SPRAY BOTTLE- DIRECTION S FOR USE (SK), #2 30ML SPRAY BOTTLES, #1 FUNNEL, SALINE 5ML VIALS #300ML 06/13 completed Not Available Not Available Not Available cyclobenzap rine 10 mg tablet TAKE 1 TABLET BY MOUTH EVERY 8 HOURS NEEDED 11/16 completed Not Available Not Available Not Available amoxicillin 500 mg capsule Take 1 capsule(s ) by mouth q8h for 10 days 11/26 completed Not Available Not Available Not Available promethazin e-DM 6.25 mg-15 mg/5 mL oral syrup Take 1 teaspoonf ul by mouth every 6 hours as needed. 05/25 completed Not Available Not Available Not Available cetirizine 10 mg tablet Take 1 tablet(s) by mouth daily 02/09 completed Not Available Not Available Not Available azithromyci n 250 mg tablet take 2 tablets (500 mg) by oral route once daily for 1 day then 1 tablet (250 mg) by oral route once daily for 4 days 12/16 completed Not Available Not Available Not Available ibuprofen 800 mg tablet TAKE ONE TABLET BY MOUTH THREE TIMES DAILY with meals for 4 days 04/28 completed Not Available Not Available Not Available enalapril maleate 20 mg tablet Take 1 tablet(s) by mouth daily 05/11 completed Not Available Not Available Not Available meloxicam 15 mg tablet Take 1 tablet every day by oral route for 14 days, for foot pain. 11/16 completed Not Available Not Available Not Available penicillin V potassium 500 mg tablet Take 1 tablet twice a day by oral route for 7 days, for gum infection . 05/03 completed Not Available Not Available Not Available fexofenadin e 180 mg tablet Take 1 tablet(s) by mouth daily 12/09 completed Not Available Not Available Not Available dextrometho rphan-guaif enesin 10 mg-100 mg/5 mL oral syrup Take 1 teaspoon by mouth q4h prn for cough 06/13 completed Not Available Not Available Not Available sulfamethox azole 800 mg-trimetho prim 160 mg tablet TAKE ONE TABLET BY MOUTH EVERY TWELVE HOURS FOR 10 DAYS 04/28 completed Not Available Not Available Not Available tramadol 50 mg tablet 06/17 completed Not Available Not Available Not Available amoxicillin 500 mg tablet take 1 tablet (500 mg) by oral route every 12 hours for 10 days 07/02 completed Not Available Not Available Not Available bisoprolol fumarate 10 mg tablet TAKE ONE TABLET BY MOUTH EVERY DAY active Not Available Not Available No t Available Zofran 4 mg tablet 1 tablet PO q 6 hrs PRN N/V 08/14 completed Not Available Not Available Not Available losartan 100 mg-hydrochl orothiazide 25 mg tablet TAKE ONE TABLET BY MOUTH EVERY DAY FOR BLOOD PRESSURE active Not Available Not Available No t Available oxycodone-a cetaminophe n 5 mg-325 mg tablet 06/17 completed Not Available Not Available Not Available Tessalon Perles 100 mg capsule one pill every 8 hours as needed for cough 10/10 completed Not Available Not Available Not Available ceftriaxone 1 gram solution for injection Take 1 g by injection route. 06/13 completed Not Available Not Available Not Available tamsulosin 0.4 mg capsule TAKE ONE CAPSULE BY MOUTH EVERY EVENING 04/28 completed Not Available Not Available Not Available doxycycline monohydrate 100 mg capsule TAKE ONE CAPSULE BY MOUTH TWICE DAILY FOR 10 DAYS 02/17 completed Not Available Not Available Not Available triamcinolo ne acetonide 40 mg/mL suspension for injection Take 1 mL by injection route. 02/17 completed Not Available Not Available Not Available cephalexin 500 mg capsule 07/06 completed Not Available Not Available Not Available oseltamivir 75 mg capsule TAKE ONE CAPSULE BY MOUTH TWICE DAILY FOR 5 DAYS for flu 06/01 completed Not Available Not Available Not Available hydrochloro thiazide 12.5 mg capsule TAKE ONE CAPSULE BY MOUTH EVERY DAY 11/16 completed Not Available Not Available Not Available omeprazole 20 mg capsule,del ayed release Take 1 capsule(s ) by mouth daily 10/11 completed Not Available Not Available Not Available lisinopril 20 mg-hydrochl orothiazide 25 mg tablet TAKE ONE TABLET BY MOUTH DAILY 11/16 completed Not Available Not Available Not Available etodolac 400 mg tablet take 1 tablet (400 mg) by oral route 2 times per day with food for severe headache 12/16 completed Not Available Not Available Not Available mupirocin 2 % topical ointment apply topically TO affected AREA twice daily FOR infection FOR 14 DAYS 06/13 completed Not Available Not Available Not Available Levaquin 500 mg tablet Take 1 tablet(s) by mouth daily for 10 days 11/15 completed Not Available Not Available Not Available SSD 1 % topical cream APPLY A 1/16 INCH (1.5 MM) THICK LAYER OF CREAM TO ENTIRE BURN AREA TOPICALLY TWICE DAILY 04/28 completed Not Available Not Available Not Available ketoconazol e 2 % topical cream apply topically TWICE DAILY FOR athletes foot 06/13 completed Not Available Not Available Not Available bromphenira mine-pseudo ephedrine-D M 2 mg-30 mg-10 mg/5 mL oral syrup take 10 millilite rs by oral route every 4 hours PRN cough 02/03 completed Not Available Not Available Not Available ondansetron 4 mg disintegrat ing tablet DISSOLVE ONE TABLET on the tongue every 6 hours as needed for nausea 06/13 completed Not Available Not Available Not Available cefdinir 300 mg capsule Take 2 capsule(s ) by mouth daily for 10 days 05/05 completed Not Available Not Available Not Available atenolol 50 mg tablet Take 1 tablet(s) by mouth daily 05/11 completed Not Available Not Available Not Available gentamicin 0.1 % topical ointment APPLY UP TO 4 GRAMS TO AFFECTED AREA TWICE DAILY 06/13 completed Not Available Not Available Not Available naproxen 500 mg tablet TAKE 1 TABLET BY MOUTH TWICE DAILY 01/10 completed Not Available Not Available Not Available amoxicillin 875 mg-potassiu m clavulanate 125 mg tablet TAKE ONE TABLET BY MOUTH EVERY TWELVE HOURS FOR 7 DAYS with meals active Not Available Not Available No t Available amoxicillin 500 mg-potassiu m clavulanate 125 mg tablet take 1 tablet by oral route every 12 hours 02/03 completed Not Available Not Available Not Available Ventolin HFA 90 mcg/actuati on aerosol inhaler inhale 1 to 2 puffs by mouth every 4 to 6 hours as needed for cough or wheezing active Not Available Not Available No t Available rosuvastati n 20 mg tablet TAKE ONE TABLET BY MOUTH EVERY DAY FOR cholester ol active Not Available Not Available No t Available Chantix 0.5 mg tablet one tablet by mouth for 7 days then 2 po qd thereafte r 10/06 completed Not Available Not Available Not Available Chantix 1 mg tablet Take 1 tablet(s) by mouth bid 02/03 completed Not Available Not Available Not Available hydrochloro thiazide 12.5 mg tablet Take 1 tablet(s) by mouth daily 12/16 completed Not Available Not Available Not Available Waleska-Tussin DM 10 mg-100 mg/5 mL oral liquid take 1 teaspoonf ul by mouth every 4 hours as needed for cough 06/13 completed Not Available Not Available Not Available Vitals Date Recorded Body height Body mass index (BMI) Body weight Body temperature Heart rate Oxygen saturation Oxygen saturation in Arterial blood by Pulse oximetry Systolic blood pressure Diastolic blood pressure Provider Name and Address Organization Details Last Updated DateTime 5 190.5 cm 32.2 kg/m2 537292. 68 g 99.5 [degF] 89 /min 94 % 94 % 118 mm[Hg] 74 mm[Hg] AIME LEGER [employer] 5 08:37:54 Date Recorded Body height Body mass index (BMI) Body weight Body temperature Heart rate Oxygen saturation Oxygen saturation in Arterial blood by Pulse oximetry Systolic blood pressure Diastolic blood pressure Systolic blood pressure Diastolic blood pressure Systolic blood pressure Diastolic blood pressure Provider Name and Address Organization Details Last Updated DateTime 5 190.5 cm 32.4 kg/m2 626929. 42 g 98.5 [degF] 110 /min 96 % 96 % 159 mm[Hg] 96 mm[Hg] 160 mm[Hg] 114 mm[Hg] 170 mm[Hg] 94 mm[Hg] Lorena Ness [employer] 5 16:24:10 Date Recorded Body height Body mass index (BMI) Body weight Body temperature Heart rate Oxygen saturation Oxygen saturation in Arterial blood by Pulse oximetry Systolic blood pressure Diastolic blood pressure Provider Name and Address Organization Details Last Updated DateTime 5 190.5 cm 32.9 kg/m2 918868. 51 g 99.4 [degF] 86 /min 96 % 96 % 123 mm[Hg] 84 mm[Hg] AIME [employer] 5 10:07:10 Date Recorded Body height Body mass index (BMI) Body weight Body temperature Heart rate Oxygen saturation Oxygen saturation in Arterial blood by Pulse oximetry Systolic blood pressure Diastolic blood pressure Systolic blood pressure Diastolic blood pressure Systolic blood pressure Diastolic blood pressure Provider Name and Address Organization Details Last Updated DateTime 4 190.5 cm 31.2 kg/m2 003934. 94 g 98.9 [degF] 92 /min 95 % 95 % 155 mm[Hg] 103 mm[Hg] 144 mm[Hg] 84 mm[Hg] 145 mm[Hg] 82 mm[Hg] [employer] 4 10:46:45 Date Recorded Body height Body mass index (BMI) Body weight Body temperature Heart rate Oxygen saturation Oxygen saturation in Arterial blood by Pulse oximetry Systolic blood pressure Diastolic blood pressure Systolic blood pressure Diastolic blood pressure Systolic blood pressure Diastolic blood pressure Provider Name and Address Organization Details Last Updated DateTime 4 190.5 cm 31.3 kg/m2 937896. 25 g 98.9 [degF] 110 /min 96 % 96 % 161 mm[Hg] 96 mm[Hg] 143 mm[Hg] 90 mm[Hg] 145 mm[Hg] 91 mm[Hg] [employer] 4 17:06:47 Social History Question Answer Notes LastModified by Organizat ion Details LastModified Time Tobacco Smoking Status Current Every Day Smoker KOSTAS coronel [employer] 09/01/2023 14:13:35 Do You Have An Advance Directive? No Information not available 12/16/2021 Is Your Home Air Conditioned? Yes Information not available 12/16/2021 Do You Wear A Helmet When Biking? No Information not available 12/16/2021 Are You Blind Or Do You Have Difficulty Seeing? No Information not available 12/16/2021 Are You A Caregiver? Yes Information not available 12/16/2021 What Type Of Sausage Mixer Do You Use? Relative Information not available 12/16/2021 In The 14 Days Before Symptom Onset, Have You Had Close Contact With A Laboratory-confi rmed COVID-19 While That Case Was Ill? No Information not available 12/16/2021 In The 14 Days Before Symptom Onset, Have You Had Close Contact With A Person Who Is Under Investigation For COVID-19 While That Person Was Ill? No Information not available 12/16/2021 Have You Been To An Area Known To Be High Risk For COVID-19? No Information not available 12/16/2021 Are You Deaf Or Do You Have Serious Difficulty Hearing? No Information not available 12/16/2021 What Type Of Diet Are You Following? REGULAR Information not available 12/16/2021 Who Is Your Employer? Self Employed Information not available 12/16/2021 Are There Any Guns Present In Your Home? No Information not available 12/16/2021 Where Do You Live? SingleLevelHouse Information not available 12/16/2021 Do You Have A Medical Power Of Water Plant Maintenance Mechanic? No Information not available 12/16/2021 What Was The Date Of Your Most Recent Tobacco Screening? 06/13/2024 Information not available 06/13/2024 What Is Your Current Pack Years? 10-19packyears Information not available 09/08/2023 Do You Have Any Pets? Yes Information not available 12/16/2021 What Is Your Relationship Status? Information not available 12/16/2021 Do You Use Your Seat Belt Or Car Seat Routinely? Yes Information not available 12/16/2021 Do You Have Smoke And Carbon Monoxide Detectors In Your Home? Yes Information not available 12/16/2021 Are You Passively Exposed To Smoke? Yes Information not available 12/16/2021 Are There Any Smokers In Your House? No Information not available 12/16/2021 How Much Tobacco Do You Smoke? 1 PPD Information not available 12/16/2021 Do You Participate In Social Media? Yes Information not available 12/16/2021 Do You Use Sunscreen Routinely? No Information not available 12/16/2021 Has Tobacco Cessation Counseling Been Provided? No Information not available 12/16/2021 How Many Years Have You Smoked Tobacco? 9 Information not available 09/08/2023 Have You Recently Traveled Abroad? No Information not available 12/16/2021 Do You Have Difficulty Walking Or Climbing Stairs? No Information not available 12/16/2021 Are You Currently In School? No Information not available 12/16/2021 Do You Have Any Dietary Restrictions? No Information not available 12/16/2021 Sex: Male Functional Status Question Answer Note LastModified by Organizat ion Details LastModified Time Do you use any illicit or recreational drugs? No Information not available 12/16/2021 Do you or have you ever used any other forms of tobacco or nicotine? No Information not available 12/16/2021 What is your level of alcohol consumption? None Information not available 12/16/2021 Are you currently employed? Yes Information not available 12/16/2021 Do you have transportation difficulties? No Information not available 12/16/2021 Do you have difficulty doing errands alone? No Information not available 12/16/2021 Are you able to care for yourself? No Information not available 12/16/2021 Do you have difficulty dressing or bathing? No Information not available 12/16/2021 Mental Status Question Answer Note LastModified by Organization D etails LastModified Time Do you have difficulty concentrating, remembering or making decisions? No Information no t available 12/16/2021 Family History Relationship Description Onset Age of this Age Resolved Age Notes LastModified by Organization Details LastModified Time Father No current problems or disability [email or web address] Not available 14:13:09 Mother No current problems or disability [email or web address] Not available 14:13:09 Medical History Condition Response Other Emergency room visit since last appointm ent. N High Cholesterol Y Heart Problems Y Hospitalizations N Hypertension Y Immunizations Vaccine Type Date Status Note Provider Nam e and Address Organization Details Recorded Time Influenza, split virus, trivalent, preservative 7 completed Not Available [facility]28[facility]23 13:58:49 Influenza, live, trivalent, intranasal 4 completed AIME MYNEAR null, [employer] 06/17/2022 08:15:30 MMR 7 completed AIME MYNEAR null, [employer] 06/17/2022 08:15:30 OPV 7 completed AIME MYNEAR null, [employer] 06/17/2022 08:15:30 Influenza, split virus, trivalent, preservative 4 completed AIME MYNEAR null, [employer] 06/17/2022 08:15:30 DTaP, unspecified formulation 7 completed AIME MYNEAR null, [employer] 06/17/2022 08:15:30 Past Encounters Encounter ID Performer Location Encounter Start Date Encounter Closed Date Diagnosis/Indication Diagnosis SNOMED-CT Code Diagnosis ICD10 Code Diagnosis Note [id number] Vicky Mercedes[address] [address] 12/16/2021 08:19:48 12/16/2021 09:06:45 Essential hypertension 53125999 I10 Vasectomy requested 1839 33978 Z30.2 Hypertensive disorder 38 493760 I10 [id number] Vicky Mercedes[address] [address] 06/17/2022 08:08:50 06/17/2022 08:42:30 Hypertensive disorder 97516952 I10 DASH diet, exercise, weight loss and smoking cessation emphasized . Mixed hyperlipidemia 267 697612 E78.2 Tobacco de pendence caused by cigarettes 7199959060 0082865 F17.210 Body mass index 30+ - obesity 955971870 Z68.31 Adult heal th examination 270408422 Z00.00 [id number] Vicky Mercedes [place] [address] 07/06/2022 17:28:23 07/07/2022 11:39:20 Sunburn of second degree 178855634 L55.1 Ibuprofen QID with food, Stay cool and dry. Use of silvadene explained. RTC for s/s of infection. [id number] Vicky Mercedes [place] [address] 02/03/2023 16:03:46 02/03/2023 17:03:40 Dysuria 29002942 R30.0 No stone noted on KUB today. Start meds, push fluids, avoid caffeine. If sx do not resolve, he will need another CT abd and Urology consult. [id number] Vicky Mercedes [place] [address] 04/28/2023 13:56:51 04/28/2023 15:18:40 Essential hypertension 62428436 I10 Long d/w pt regarding consequenc es of uncontroll ed HTN including , CHF, CKD, CAD, CVA. Encouraged methods for daily med compliance . Mixed hyperlipidemia 267 964478 E78.2 Restart statin. Snoring 84032581 R06.83 Obtain home sleep study. Tobacco de pendence caused by cigarettes 3621401276 0048933 F17.210 Smoking cessation strongly recommende d. Body mass index 30+ - obesity 685145773 Z68.31 [id number] ORALIA KUO, [facility] [id number] 09/01/2023 14:01:53 09/01/2023 14:55:55 Abdominal pain 02720261 R10.9 Pain in right foot 57155 26862 17129 M79.444 [id number] Vicky Mercedes [place] [address] 0 09/08/2023 09:17:04 09/08/2023 09:56:32 Primary gout 56924196 M10.00 Right foot. Stop wearing boots, obtain an insole, ice feet. Avoid ETOH. Body mass index 30+ - obesity 276146534 Z68.31 Tobacco de pendence caused by cigarettes 5078761185 2981051 F17.210 Smoking cessation strongly recommende d. [id number] Vicky [place] [id number] 0 11/17/2023 08:27:26 11/17/2023 09:17:59 Adult health examination 063234004 Z00.00 The patient advised to continue a healthy diet and exercise regularly. He was also advised to:. . Advised patient to follow up in 1 year or sooner if needed. Essential hypertension 82384295 I10 Continue Losartan/h ctz and bisoprolol and statin. DASh diet and ETOH moderation encouraged . Leukocytosis 245813862 D 72.829 Repeat CBC today with smear. Obstructiv e sleep apnea syndrome 60196794 G47.33 Intolerant of CPAP, may be candidate for Inspire or oral device Mixed hyperlipidemia 267 597722 E78.2 Restart statin. Body mass index 30+ - obesity 642055183 Z68.31 Tobacco de pendence caused by cigarettes 5116999373 4962176 F17.210 Smoking cessation strongly recommende d. [id number] [place] [address] 01/11/2024 10:31:44 01/11/2024 11:22:29 Obstructive sleep apnea syndrome 23810999 G47.33 Intolerant of CPAP, may be candidate for Inspire or oral device. He has tried full face mask and cannot tolerate it due to smothering sensation with panic. He has severe snoring and daytime somnolence . Hypertensive disorder 38 781707 I10 DASH diet, exercise, weight loss and smoking cessation emphasized . Again consequenc es of uncontroll ed HTN were reviewed with him. Tobacco de pendence caused by cigarettes 1730222964 0361090 F17.210 Smoking cessation strongly recommende d. Noncomplia nce with medication regimen 955312550 Z91.148 Mixed hyperlipidemia 267 518444 E78.2 Restart statin. Acute left otitis media 514548849 H66.92 Acute bronchitis 1125980 2 J20.9 Stop smoking, [id number] [place] [address] 02/18/2024 16:45:53 02/21/2024 09:10:15 Gingivitis 68596341 K05.10 Inst on mouth rinses with 1:1 peroxide/w ater mixture. Stop smoking. Dental hygiene explained. Avoid spicy and acidic foods. RTC or f/up with dental for failure to resolve. [id number] [place] [address] 05/03/2024 08:20:47 05/03/2024 09:15:31 Fever 302429463 R50.9 Influenza caused by Influenza A virus 252350756 J09.X2 Pt advised to rest, drink clear fluids, use a humidifier , gargle with warm salt water, use Ibuprofen for fever prophylaxi s. Pt will notify provider: if temp >101 or persists for >3weeks, if there is blood in the stool or vomit, if there are any signs of dehydratio n, or any problems breathing. [id number] [place] [address] 06/01/2024 16:04:30 06/01/2024 16:50:30 Sore throat 659608847 J02.9 Acute pharyngitis 971347 003 J02.9 Essential hypertension 11639741 I10 Body mass index 30+ - obesity 817049917 Z68.32 [id number] [place] [address] 06/13/2024 09:26:44 06/13/2024 12:12:08 Sore throat 530289067 J02.9 Persistent cough 6384924 02 R05.3 Cough The patient presents wet cough. The patient's condition is worsening. Based on the findings today we will begin medication therapy. Reviewed symptomati c care instructio steve, the expected course of these illnesses and explained that coughing can persist for some time. Provided precaution s for signs of worsening disease and instructmichelle wilson on contacting us if symptoms worsen. Health Concerns Section Related Observation LastModified by Organization Dudley rhodes LastModified Time None Recorded Concern Status LastModified by Organization Details LastModified Time None Recorded Advance Directives Directive N: Payers Insurance Date Sequence Insurance Name Policy Number Policy Cary Covered Member ID Cary Member ID Guarantor Name 06/13/2024 1 AETNA [facility] (MEDICAID HMO) Pedro Davis [id number] Pedro Davis 01/11/2024 SLIDING FEE SCHEDULE - DISCOUNT Pedro Davis 02/18/2024 1 *SELF PAY* Lianet sloan Davis 01/11/2024 1 [employer] [facility] (MEDICAID HMO) Pedro Davis [id number] Pedro Davis Notes Date Note Type Note Provider Name and Address Organization Details Recorded Time 01/11/2024 text/html Hypertension F/UReported bypatient.Medications: taking medications as directed; no side effects from medication Lifestyle:not exercising regularly;does not adhere to low sodium diet Associated Symptoms:no dizziness; no lightheadedness; no chest pain; no shortness of breath; no palpitations; no edema; no calf pain with exertion; no headacheNotes:He saw Cardiology in August for echo, cardiac CT with calcium scoring. Was found to have mild MVP. HTN med was increased. He has not been compliant with statin and that was encouraged again today. He admits he has not taken BP meds for a few weeks.Obstructive Sleep Apnea F/UReported bypatient.Quality:wors ening;loud snoring;witnessed apnea;frequent breathing through the mouth;snoring with apnea Onset/Timing:chronic Duration:continuous Severity:severe;limits daily activities;difficulty getting going in the morning; severity of snoring does not sleep with partner Location:no enlarged tonsils; no nasal passage blockage; no throat pain; no feeling of tightness in throat; no chest congestion;dryness of mouth Context:intolerant of CPAP mask;hypertension Alleviating factors:nothing gives relief Aggravating factors:worse with excess fatigue; worse with alcohol use; worse with certain sleeping positions; worse during an upper respiratory infection (a cold) Associated Symptoms:excessive sleepiness during the day;excess napping;impaired work performance Prior Tests:thyroid panel; home sleep study Prior TreatmentCPAP Prior opinionPCPNotes:He remains intolerant of CPAP. Has tried a couple of different mask types. He is asking about Inspire Device for NAVIN. He would likely be a good candidate, but I'm not sure his Medicaid would cover that.Upper Respiratory SymptomsReported bypatient.Location:hea d; throat; nasal; ears Quality:productive cough;congested;wheezy cough;hurts to swallow;nasal discharge Severity:moderate Duration:symptoms lasting less than 2 weeks Onset/Timing:gradual Context:no sick contacts; no foreign travel;smoker Associated Symptoms:no chest pain;yellow sputum;wheezing;sore throat Vicky Mercedes APRN [address] [place] [address], [phone], [employer]. 01/11/2024 12:50:54 02/18/2024 text/html Complains of tyler nful swollen gums in left lower front 3 teeth x 3 days. He is a smoker. Vicky Mercedes APRN [address] [place] [address], [phone], [employer]. 02/20/2024 18:08:11 05/03/2024 text/html Upper Respirator y SymptomsReported bypatient.Location:hea d; chest; throat; nasal Quality:dry cough;hurts to swallow;nasal discharge Severity:moderate Duration:symptoms lasting less than 2 weeks Onset/Timing:sudden; date of onset: (05/01/24) Context:no foreign travel;sick contact;smoker Alleviating Factors:analgesics Associated Symptoms:no chest pain; no sputum production; no shortness of breath;wheezing;fatigu e;fever;morning cough;sore throat;vomiting;diarrh ea;nausea;headache;chi lls;malaise His daughter tested positive for FLU on 04/29/24 Vicky Mercedes APRN [address] [place], [phone], [employer]. 05/03/2024 15:18:26 06/01/2024 text/html 33 year old male presents for sore throat and hoarseness x 4 days. He has been taking allergy medication assuming it was allergies but symptoms worsening. Had flu in apr but all symptoms resolved. - strep today. Throat with erythema and white patches. Will treat with Rocephin shot today. pt to return for worsening symptoms.BP elevated today. 170/94. Pt states he forgot to take BP medication today but typically does. Bp typically normal at home. pt denies cp, soa, SON, dizziness, blurred vision. Advised him to take medication. pt agrees. Laura Short APRN [address] [place], [phone], [employer]. 06/01/2024 17:21:54 06/13/2024 text/html Upper Respirator y SymptomsReported bypatient.Location:[address]; throat; nasal Quality:productive cough;congested;hurts to swallow;nasal discharge Severity:moderate Duration:symptoms lasting over 2 weeks Onset/Timing:gradual; sx began first week of April with influenza Context:no sick contacts; no foreign travel;smoker Alleviating Factors:analgesics; antihistamines; decongestant Associated Symptoms:yellow sputum;shortness of breath;wheezing;diffic ulty breathing at night;sleep apnea;fatigue;sweats;f ever;morning cough;sore throat;malaise Vicky Mercedes APRN [address] [place], [phone], [employer] 06/13/2024 15:58:15
--- OUTSIDE RECORDS SUMMARY | 2024-09-13 20:20 | XMS_ITS | Encounter Summary ---
Author Organization [employer] Address [address] [place] [address] Care Team Providers Care Pack Changer Name Role Phone MercedesVicky ferrer Misael GUTIERREZ Primary Care Provider [phone] Encounter Details Date Type Department Care Team (Late st Contact Info) Description 06/16/2022 Outside Orders [facility] Admitting [address] [address] Palomo Hatch MD [address] [place] [address] Post-operative pain (Primary Dx) Social History Tobacco Use Types [...] suspected to have Coronavirus/COVID-19? No / Unsure 06/16/2022 4:21 PM EDT documented as of this encounter Plan of Treatment Not on file documented as of this encounter Procedures Procedure Name Priority Date/Time Associated Diagnosis Comments CBC W/ AUTO DIFF Routine 06/16/2022 4:29 PM EDT Post-operative pain SEDIMENTATION RATE Routine 06/16/2022 4: 29 PM EDT Post-operative pain documented in this encounter Results * Sedimentation rate (06/16/2022 4:29 PM EDT) Pathologist [facility] [place] Sed Rate 1 0 - 15 mm/HR 06/16/2022 6:50 PM EDT [facility] Hematocrit 45.4 % 06/16/2022 6:50 PM EDT [facility] Blood Venipuncture / Unknown 06/16/2022 4:29 PM EDT 06/16/2022 4:29 PM EDT us Palomo Hatch MD LAB BLOOD ORDERABLES Final Resul t [facility] [address] [place] [address], [facility] [phone] * (ABNORMAL) CBC with automated diff (06/16/2022 4:29 PM EDT) Pathologist [facility] WBC 11.7(H) 4.8 - 10.8 K/ L 06/16/2022 5:05 PM EDT [facility] RBC 4.82 3.80 - 5.20 M/ L 06/16/2022 5:05 PM EDT [facility] Hemoglobin 15.9 12.8 - 17.4 GM/DL 06/16/2022 5:05 PM EDT [facility] Hematocrit 45.4 39.0 - 51.0 % 06/16/2022 5:05 PM EDT [facility] MCV 94 81 - 101 fL 06/16/2022 5:05 PM EDT [facility] MCH 33.0 27.0 - 34.0 pg 06/16/2022 5:05 PM EDT [facility] MCHC 35.0 32.0 - 36.0 GM/DL 06/16/2022 5:05 PM EDT [facility] RDW 12.6 11.5 - 14.5 % 06/16/2022 5:05 PM EDT [facility] Platelets 315 150 - 400 K/CU MM 06/16/2022 5:05 PM EDT [facility] MPV 10.2 9.4 - 12.4 fL 06/16/2022 5:05 PM EDT [facility] Nucleated Red Blood Cell 0.0 0 - 0.2 % 06/16/2022 5:05 PM EDT [facility] % Neutros 60 37 - 80 % 06/16/2022 5:05 PM EDT [facility] % Lymphs 28 10 - 50 % 06/16/2022 5:05 PM EDT [facility] % Monos 10 5 - 13 % 06/16/2022 5:05 PM EDT [facility] % Eos 1 0 - 7 % 06/16/2022 5:05 PM EDT [facility] % Baso 0 0 - 3 % 06/16/2022 5:05 PM EDT [facility] NRBC Absolute 0.00 0 - 0.12 K/ul 06/16/2022 5:05 PM EDT [facility] # Neutros 7.06(H) 2.00 - 6.90 K/ L 06/16/2022 5:05 PM EDT [facility] # Lymphs 3.29 0.60 - 3.40 K/ L 06/16/2022 5:05 PM EDT [facility] # Monos 1.11(H) 0.00 - 0.90 K/ L 06/16/2022 5:05 PM EDT [facility] # Eos 0.13 0.00 - 0.70 K/ L 06/16/2022 5:05 PM EDT [facility] # Baso 0.05 0.00 - 0.20 K/ L 06/16/2022 5:05 PM EDT [facility] Immature Granulocytes-Re lative 0.70(H) 0.00 - 0.00 % 06/16/2022 5:05 PM EDT [facility] # IG 0.08(H) 0.00 - 0.00 K/uL 06/16/2022 5:05 PM EDT [facility] Blood Venipuncture / Unknown 06/16/2022 4:29 PM EDT 06/16/2022 4:29 PM EDT Narrative [facility] - 06/16/2022 5:05 PM EDT When CBC w/ Auto Diff is ordered the lab will add a Manual Differential as a quality check at no additional charge if: Lymphocytes greater than seventy five percent with normal or increased WBC Monocytes greater than Fifteen percent Basophil greater than four percent Bands >10% or several immature myeloids are seen on scan Blast? Flag noted Atypical Lymph flag noted us Palomo Hatch MD LAB BLOOD ORDERABLES Final Resul t [facility] [address] [place] [address] documented in this encounter Visit Diagnoses Diagnosis Post-operative pain- Primary Other acute postoperative pain documented in this encounter Care Teams Pack Changer Relationship Specialty Start Date End Date Vicky Mercedes, WELFARE INVESTIGATOR PCP - General Family Medicine 06/16/22 documented as of this encounter
--- OUTSIDE RECORDS SUMMARY | 2024-09-13 20:21 | XMS_ITS | Referral Summary ---
Author Organization [employer] Address [address] [place] [address] Care Team Providers Care Marine Structural Welder Name Role Phone Vicky Mercedes APRN Primary Care Provider [phone] Social History Tobacco Use Types Packs/Day Years Used Date Smoking Tobacco: Never Assessed Interpersonal Safety Answer Date Record ed Family or friends hurt you Not on file 04/17 Family or friends insult you Not on file Family or friends threaten you Not on file 0 04/17/2023 Family or friends scream or curse at you Not on file 04/17/2023 Housing Stability Answer Date Recorded Living situation today Not on file Living situation problems Not on file 2023 Food Insecurity Answer Date Recorded Food run out past 12 months Not on file 03/30 Food did not last past 12 months Not on file 04/17/2023 Employment Answer Date Recorded Help finding and keeping a job Not on file 0 04/17/2023 Family and Community Support Answer Carson e Recorded Help with Day to Day Activities Not on file 04/17/2023 Feeling Lonely or Isolated Not on file 04/17 Educational Attainment Answer Date David rded Speak language other than [place] at home Not on file 04/17/2023 Want help with school or training Not on file 04/17/2023 Depression Answer Date Recorded PHQ-2 Risk Not on file 04/17/2023 Disabilities Answer Date Recorded Difficulty concentrating Not on file 024 Difficulty doing errands alone Not on file 0 04/17/2023 Substance Use Answer Date Recorded Used prescription meds for non-medical reasons N ot on file 04/17/2023 Used illegal drugs past 12 months Not on file 04/17/2023 Sex and Gender Information Value Date Recorded Sex Assigned at Not on file Legal Sex Male 3:14 PM CDT Gender Identity Not on file Sexual Orientation Not on file Plan of Treatment Not on file Insurance [facility]NA [facility] Care Teams Marine Structural Welder Relationship Specialty Start Date End Date Vicky Mercedes, FACILITIES MAINTENANCE MANAGER PCP - General Family Medicine 06/16/22
--- OUTSIDE RECORDS SUMMARY | 2024-09-13 20:21 | XMS_ITS | Clinical Summary ---
Author Organization [employer] Address [address] [place] [address] Care Team Providers Care Public Health Technologist Name Role Phone Vicky Mercedes APRN Primary Care Provider [phone] Social History Tobacco Use Types Packs/Day Years [...] Date David rded Speak language other than Emir[place] at home Not on file 04/17/2023 Want [...] Orientation Not on file Plan of Treatment Health Maintenance Due Date Last Done Comments Depression Screening (12+) 2003 Tobacco Cessation Counseling and Screening (12+) 2003 HIV Screening 12/24/2006 Hepatitis C Screening 12/24/2009 DTAP/TDAP/TD VACCINES (2 - Tdap) 12/24/2010 05/17/18 97 COVID-19 VACCINE (1 - 2023-2 5 season) 2023 Influenza Vaccine (Season Ended) 2024 02/15/20 14 Pneumococcal Vaccine: 0-49 Years Aged Out No longer eligible based on patient's age to complete this topic Insurance [facility]ETNA [facility] Care Teams Public Health Technologist Relationship Specialty Start Date End Date Vicky Mercedes APRN PCP - General Family Medicine 06/16/22
== END ==
LOC: SL 20:19
PROVIDERS: PCP Nurse Practitioner Family; Visit Provider Specialist
DX: G47.33 Obstructive sleep apnea (adult) (pediatric) (principal); R53.83 Other fatigue
CPT/HCPCS: 95811